=== PATIENT | female | born 2000 | race Caucasian/White ===

== ENCOUNTER 2020-10-13 23:18 | Emergency (ER) | payer OTHER, MEDICAID ==
[2020-10-13] MEDS ORDERED: Sodium Chloride 0.9% 1,000 ML IV SCH (23:45)
--- NOTE | 2020-10-13 23:49 | EDM.PDOC ---
ED HPI GENERAL MEDICAL PROBLEM - General Chief Complaint: BAND CUTTER Problem Stated Complaint: 14 WKS PG VAGINAL BLEEDING Time Seen by Provider: 10/13/20 23:48 Source of Information: Reports: Patient History Limitations: Reports: No Limitations - History of Present Illness INITIAL COMMENTS - FREE TEXT/NARRATIVE: 20-year-old female who is 2 para 0 presents to the ED at approximately 14 weeks gestation with acute onset of bright red blood per vagina. Associated mild lower abdominal cramping pain which she equates to menstrual cramping. had been uncomplicated up until today. Patient states that after sexual intercourse tonight she developed bright red bleeding per vagina approximately 2200 hrs. Became aware of blood running down the inside of her left leg and blood dripping into the toilet when she went to the bathroom with bright red blood with wiping. Patient is followed by Dr. Sergio Lazar BAND CUTTER and actually seen him in clinic yesterday with no reported abnormalities. An ultrasound was not done however. Ultrasound done previously established her due date to be April 09, 2021. Patient had a previous with twin gestation that ended at 12 weeks with spontaneous miscarriage. This occurred in July of this year. Patient reports that she is blood type O-. She does not recall ever receiving any RhoGam after the last miscarriage. She reports no previous abdominal surgery. Onset: Today, Sudden Onset Date: 10/13/20 Onset Time: 21:30 Duration: Minutes:, Improving Location: Reports: Other (Bright red bleeding per vagina.) Quality: Reports: Other Severity: Mild (Intermittent lower abdominal cramping pain) Improves with: Reports: None Worsens with: Reports: None Context: Denies: Activity, Exercise, Lifting, Sick Contact, Trauma, Other Associated Symptoms: Denies: Confusion, Chest Pain, Cough, cough w sputum, Diaphoresis, Fever/Chills, Headaches, Loss of Appetite, Malaise, Nausea/Vomiting, Rash, Seizure, Shortness of Breath, Syncope, Weakness Treatments PORK CUTLET [employer]KER: Reports: Other (see below) (Only vitamin.) Lower Abdomen Pain Score (Numeric/FACES): 3 - Related Data Allergies Allergy/AdvReac Type Severity Reaction Status Date / Time No Known Allergies Allergy Verified 10/13/20 23:48 Past Medical History : 2 Para: 0 (Spontaneous miscarriage of twin gestation at 12 weeks in July 2020.) LMP (Approximate): > 3 Months Social & Family History - Living Situation & Occupation Living situation: Reports: Single Occupation: Employed (Self-employed) ED ROS GENERAL - Review of Systems Review Of Systems: See Below Constitutional: Reports: Fatigue. Denies: Fever, Chills, Malaise, Weakness HEENT: Reports: No Symptoms Respiratory: Reports: No Symptoms Cardiovascular: Reports: No Symptoms Endocrine: Reports: Fatigue GI/Abdominal: Reports: Abdominal Pain (Mild diffuse lower suprapubic abdominal cramping pain associate with bright red bleeding per vagina tonight.), Constipation (Mild problems with constipation). Denies: Nausea, Vomiting : Reports: Other (Bright red bleeding per vagina see history of present illness.) Musculoskeletal: Reports: No Symptoms Skin: Reports: No Symptoms Neurological: Reports: No Symptoms Psychiatric: Reports: No Symptoms Hematologic/Lymphatic: Reports: No Symptoms Immunologic: Reports: No Symptoms ED EXAM - Physical Exam Exam: See Below Exam Limited By: No Limitations General Appearance: Alert, WD/WN, No Apparent Distress, Other (Temperature is 37.1. Heart rate 71 and sinus. Respiratory is 20 with O2 sats of 100% room air. BP 119/76.) Eye Exam: Bilateral Eye: Normal Inspection (No scleral icterus. No blepharal pallor.), PERRL Throat/Mouth: Normal Inspection, Normal Lips, Normal Teeth, Normal Oropharynx Head: Atraumatic, Normocephalic Neck: Normal Inspection, Supple, Non-Tender, Full Range of Motion. No: Lymphadenopathy (L), Lymphadenopathy (R) Respiratory/Chest: No Respiratory Distress, Lungs Clear, Normal Breath Sounds, No Accessory Muscle Use Cardiovascular: Normal Peripheral Pulses, Regular Rate, Rhythm, No Edema, No Gallop, No Murmur GI/Abdominal Exam: Normal Bowel Sounds, Soft, Non-Tender, No Organomegaly, Pelvis Stable, Other (Gravid uterus palpable approximately 2 cm above the pubic symphysis.) (Female) Exam: Normal External Exam, Other (Uterus is acutely anteverted. Cervix is closed but is far posterior. Uterus appears to be about 14 weeks gestation. Associated mild uterine tenderness. There was no significant blood on gloved fingers.). No: Adnexal Tenderness, Cervix Motion Tenderness Heart Tones: Present (Ultrasound reveals heart rate to be 157/min.) Back Exam: Normal Inspection, Full Range of Motion. No: CVA Tenderness (L), CVA Tenderness (R) Extremities: Normal Inspection, Normal Range of Motion, Non-Tender Neurological: Alert, Oriented, CN II-XII Intact, Normal Cognition Psychiatric: Anxious (Mildly anxious.) Skin Exam: Warm, Dry, Intact, Normal Color, No Rash Course - Vital Signs Last Recorded V/S: Last Vital Signs Temp 37.1 C 10/13/20 23:44 Pulse 71 10/13/20 23:44 Resp 20 10/13/20 23:44 BP 119/76 10/13/20 23:44 Pulse Ox 100 10/13/20 23:44 - Orders/Labs/Meds Orders: Active Orders 24 hr Category Date Time Status OB Ltd 1 or More Fetus [US] Stat Exams 10/14/20 00:00 Taken RHIG WORKUP, [BBK] Stat Lab 10/14/20 00:05 Received Sodium Chloride 0.9% [Normal Saline] 1,000 ml Med 10/13/20 23:45 Active IV ASDIRECTED Medication Orders Sodium Chloride (Normal Saline) 1,000 mls @ 150 mls/hr IV ASDIRECTED SAWYER Last Admin: 10/14/20 00:25 Dose: 150 mls/hr Documented by: MARK Labs: Laboratory Tests 10/14/20 10/14/20 10/14/20 Range/Units 00:05 00:05 00:05 WBC 9.30 (3.98-10.04) K/mm3 RBC 4.00 (3.98-5.22) M/mm3 Hgb 11.4 (11.2-15.7) gm/dl Hct 33.6 L (34.1-44.9) % MCV 84.0 (79.4-94.8) fl MCH 28.5 (25.6-32.2) pg MCHC 33.9 (32.2-35.5) g/dl RDW Std Deviation 36.6 (36.4-46.3) fL Plt Count 249 (182-369) K/mm3 MPV 9.5 (9.4-12.3) fl Neut % (Auto) 63.0 (34.0-71.1) % Lymph % (Auto) 27.2 (19.3-51.7) % [place] % (Auto) 7.8 (4.7-12.5) % Eos % (Auto) 1.3 (0.7-5.8) Baso % (Auto) 0.4 (0.1-1.2) % Neut # (Auto) 5.85 (1.56-6.13) K/mm3 Lymph # (Auto) 2.53 (1.18-3.74) K/mm3 [place] # (Auto) 0.73 H (0.24-0.36) K/mm3 Eos # (Auto) 0.12 (0.04-0.36) K/mm3 Baso # (Auto) 0.04 (0.01-0.08) K/mm3 Sodium 139 (136-145) mEq/L Potassium 3.6 (3.5-5.1) mEq/L Chloride 104 (98-107) mEq/L Carbon Dioxide 24 (21-32) mEq/L Anion Gap 14.6 (5-15) BUN 9 (7-18) mg/dL Creatinine 0.7 (0.55-1.02) mg/dL Est Cr Clr Drug Dosing 114.40 mL/min Estimated GFR (MDRD) > 60 (>60) mL/min BUN/Creatinine Ratio 12.9 L (14-18) Glucose 79 (70-99) mg/dL Calcium 8.6 (8.5-10.1) mg/dL Total Bilirubin 0.7 (0.2-1.0) mg/dL AST 14 L (15-37) U/L ALT 20 (14-59) U/L Alkaline Phosphatase 46 (46-116) U/L Total Protein 6.6 (6.4-8.2) g/dl Albumin 3.6 (3.4-5.0) g/dl Globulin 3.0 gm/dL Albumin/Globulin Ratio 1.2 (1-2) Urine Color (Yellow) Urine Appearance (Clear) Urine pH (5.0-8.0) Ur Specific [place] (1.005-1.030) Urine Protein (Negative) Urine Glucose (UA) (Negative) Urine Ketones (Negative) Urine Occult Blood (Negative) Urine Nitrite (Negative) Urine Bilirubin (Negative) Urine Urobilinogen (0.2-1.0) Ur Leukocyte Esterase (Negative) Urine RBC (0-5) /hpf Urine WBC (0-5) /hpf Ur Squamous Epith Cells (0-5) /hpf Amorphous Sediment (NOT SEEN) /hpf Urine Bacteria (FEW) /hpf Urine Mucus (FEW) /hpf Blood Type O NEGATIVE Gel Antibody Screen Negative Screen 0 ros/5 flds - neg RhIG Candidate? Yes Rhogam Indicated Cancelled 10/14/20 Range/Units 00:26 WBC (3.98-10.04) K/mm3 RBC (3.98-5.22) M/mm3 Hgb (11.2-15.7) gm/dl Hct (34.1-44.9) % MCV (79.4-94.8) fl MCH (25.6-32.2) pg MCHC (32.2-35.5) g/dl RDW Std Deviation (36.4-46.3) fL Plt Count (182-369) K/mm3 MPV (9.4-12.3) fl Neut % (Auto) (34.0-71.1) % Lymph % (Auto) (19.3-51.7) % [place] % (Auto) (4.7-12.5) % Eos % (Auto) (0.7-5.8) Baso % (Auto) (0.1-1.2) % Neut # (Auto) (1.56-6.13) K/mm3 Lymph # (Auto) (1.18-3.74) K/mm3 [place] # (Auto) (0.24-0.36) K/mm3 Eos # (Auto) (0.04-0.36) K/mm3 Baso # (Auto) (0.01-0.08) K/mm3 Sodium (136-145) mEq/L Potassium (3.5-5.1) mEq/L Chloride (98-107) mEq/L Carbon Dioxide (21-32) mEq/L Anion Gap (5-15) BUN (7-18) mg/dL Creatinine (0.55-1.02) mg/dL Est Cr Clr Drug Dosing mL/min Estimated GFR (MDRD) (>60) mL/min BUN/Creatinine Ratio (14-18) Glucose (70-99) mg/dL Calcium (8.5-10.1) mg/dL Total Bilirubin (0.2-1.0) mg/dL AST (15-37) U/L ALT (14-59) U/L Alkaline Phosphatase (46-116) U/L Total Protein (6.4-8.2) g/dl Albumin (3.4-5.0) g/dl Globulin gm/dL Albumin/Globulin Ratio (1-2) Urine Color Yellow (Yellow) Urine Appearance Clear (Clear) Urine pH 7.0 (5.0-8.0) Ur Specific [place] 1.020 (1.005-1.030) Urine Protein Negative (Negative) Urine Glucose (UA) Negative (Negative) Urine Ketones Negative (Negative) Urine Occult Blood 1+ H (Negative) Urine Nitrite Negative (Negative) Urine Bilirubin Negative (Negative) Urine Urobilinogen 0.2 (0.2-1.0) Ur Leukocyte Esterase Negative (Negative) Urine RBC 0-5 (0-5) /hpf Urine WBC Not seen (0-5) /hpf Ur Squamous Epith Cells Not seen (0-5) /hpf Amorphous Sediment Few H (NOT SEEN) /hpf Urine Bacteria Rare (FEW) /hpf Urine Mucus Rare (FEW) /hpf Blood Type Gel Antibody Screen Screen RhIG Candidate? Rhogam Indicated Meds: Medications Generic Name Dose Route Start Last Admin Trade Name Freq PRN Reason Stop Dose Admin Sodium Chloride 1,000 mls @ 150 mls/hr 10/13/20 23:45 10/14/20 00:25 Normal Saline IV 150 mls/hr ASDIRECTED SAWYER Administration - Radiology Interpretation Free Text/Narrative:: 20-year-old female who is 2 para 0 presents to the ED with acute bleeding per vagina after sexual intercourse this evening. She is known to be with EDC set at April 09, 2021 by ultrasound. She was to see Dr. Sergio Lazar BAND CUTTER yesterday in clinic and no problems were identified. Ultrasound was not done yesterday. Patient reports after intercourse about 2200 hrs. she developed acute bleeding per vagina down the inner aspect of her left thigh. Appreciated bright red blood dripping into the toilet when she went to void. Associated very mild lower abdominal cramping pain Brandon with menstrual cramping. Of note patient had a miscarriage at 12 weeks gestation in July of this year and loss of a twin gestation occurred. Of note the patient is blood type O- according to her blood donor card. She does not recall receiving RhoGam in July after miscarriage. Plan routine labs to be done including a type and screen. She will require RhoGam IM if confirmation of O- blood type identified. Transabdominal ultrasound to be done. Doppler ultrasound reveals heart tones at 157/min. - Re-Assessments/Exams Free Text/Narrative Re-Assessment/Exam: 10/14/20 01:46 White count is normal at 9.30. Differential shows 63% neutrophils and 27% lymphocytes. Hemoglobin is 11.4 with hematocrit of 33.6 both of which are slightly low. Platelet count is 249,000. Sodium is 139 with a potassium of 3.6. Chloride is 104 with a bicarb of 24. Anion gap is 14.6. BUN is 9 with a creatinine of 0.7 and a GFR greater than 60. Glucose is slightly low at 79. Calcium is 8.6 . Liver function is normal. Total protein is 6.6 with an albumin fraction of 3.6. Urinalysis shows 1+ occult blood but no signs of infection. Blood type is O neg. Therefore she will need a dose of RhoGam. 10/14/20 02:25: Transabdominal ultrasound completed. Fetus is in variable position. heart rate was reportedly 148 bpm. The placenta is on the posterior fundus of the uterus. However there is a 1.7 x 1.1 x 2 cm hypoechoic focus at the superior edge of the placenta concerning for a marginal placental abruption. There is no large retroplacental hematoma. Cervix is closed and measures 3.8 cm. Patient and boyfriend so advised of the findings of the ultrasound placing her at high risk for miscarriage. At present she is having very little pain or discomfort. There is no further active bleeding at this time. Decision made to allow her to go home. She is going to be off work for the next week. She is to take life very easy with no lifting, pushing, pulling. No sexual intercourse for the next week. She is to return to medical care either to Dr. Sergio Lazar or after hours to the ED if she develops increased bright red bleeding per vagina or associated increased severe lower abdominal cramping pain. She was advised that she should make an appointment to see Dr. Lazar within the next 10 days. Patient did receive RhoGam 1500mcg IM. Departure - Departure Time of Disposition: 02:57 Disposition: Home, Self-Care 01 Condition: Fair Clinical Impression: Hemorrhage affecting in second trimester Placental abruption Qualifiers: Trimester: second trimester Qualified Code(s): O45.92 - Premature separation of placenta, unspecified, second trimester - Discharge Information *PRESCRIPTION DRUG MONITORING PROGRAM REVIEWED*: Not Applicable *COPY OF PRESCRIPTION DRUG MONITORING REPORT IN PATIENT KAREN: Not Applicable Instructions: Vaginal Bleeding During , Second Trimester, [id number], Placental Abruption Referrals: Sergio Lazar MD [Primary Care Provider] - Forms: ED Department Discharge, ED Return to Work/School Form Additional Instructions: Evaluation in the emergency room tonight in regards to development of sudden onset of bleeding per vagina and secondary trimester of . By history you are 14 weeks gestation. Ultrasound in the past identified due date to be April 09, 2021. Associated mild lower abdominal cramping pain combined with menstrual cramping. Investigations in the emergency room revealed very mild anemia in . Ultrasound done transabdominally reveals that there is a partial tear of the superior portion of the placenta measuring 1.7 x 1.1 x 2 cm along the superior edge. This suggests a very minimal or marginal abruption of the placenta as we discussed. There was no large collection of blood behind the placenta. heart rate on ultrasound was 148/min. Cervix was identified to be closed on ultrasound as well as pelvic examination. Treatment at this time is therefore near complete bed rest or resting with no significant lifting, pushing, pulling or walking for the next week. No sexual intercourse for the next week or until no further bleeding for 5 days. Return to medical care either discussed with Dr. Lazar your BAND CUTTER or return to the ED if you develop increasing lower abdominal pain or associated increased bleeding per vagina. The goal is to allow your placenta to scarred back down onto the lining of the uterus and prevent loss of this . Suggest make an appointment to see Dr. Sergio Lazar within the next 10 days for follow-up ultrasound. Sepsis Event Note (ED) - Focused Exam Vital Signs: Vital Signs Temp Pulse Resp BP Pulse Ox 10/13/20 23:44 37.1 C 71 20 119/76 100 - My Orders Last 24 Hours: My Active Orders 10/13/20 23:45 Sodium Chloride 0.9% [Normal Saline] 1,000 ml IV ASDIRECTED 10/14/20 00:00 OB Ltd 1 or More Fetus [US] Stat 10/14/20 00:05 RHIG WORKUP, [BBK] Stat - Assessment/Plan Last 24 Hours: My Active Orders 10/13/20 23:45 Sodium Chloride 0.9% [Normal Saline] 1,000 ml IV ASDIRECTED 10/14/20 00:00 OB Ltd 1 or More Fetus [US] Stat 10/14/20 00:05 RHIG WORKUP, [BBK] Stat
--- NOTE | 2020-10-14 07:50 | US ---
Obstetrical ultrasound: Multiple real-time images were obtained. Comparison: No prior obstetrical imaging is available. Dates: Working SAMANTHA: 04/09/21, gestational age 14 weeks 5 days Current ultrasound: SAMANTHA 04/05/21, gestational age 15 weeks 2 days presentation: Mobile Placenta: Posterior with no findings of placenta previa Amniotic fluid: FELICIA 9.2 cm Other findings: Small hypoechoic area is seen next to the superior placenta measuring 1.7 x 1.1 x 2.0 cm. This could represent minimal change from very partial abruption. Measurements: BPD: 3.17 cm - 15 weeks 5 days Head circumference: 10.82 cm - 15 weeks 1 day Abdominal circumference: 9.24 cm - 15 weeks 3 days Femur length: 1.53 cm - 14 weeks 4 days Estimated weight: 112 g (0 lbs. 4 oz.), estimated weight at the 58th percentile for age by working SAMANTHA Heart rate: 148 bpm Cervical length: 3.8 cm Impression: 1. Single intrauterine fetus mobile in presentation. Dates as noted above. 2. Small hypoechoic area next to the placenta suspicious for minimal hemorrhage from minimal superior abruption of the placenta. 3. No other complicating abnormality is appreciated. Diagnostic code #3 I agree with preliminary report from [facility], finalized on 10/14/20, 3:40 AM CDT, code 1
== END 2020-10-14 03:29 | disposition home or self-care (01) ==
LOC: MERGE 23:18 → JD.ED 23:18
DX: O45.92 Premature separation of placenta, unspecified, second trimester (principal); O20.9 Hemorrhage in early pregnancy, unspecified; Z3A.14 14 weeks gestation of pregnancy
CPT/HCPCS: 36415; 76815; 80053; 81001; 85025; 86850; 86900; 86901; 90384; 99284; J7030; 99283; J2790

== ENCOUNTER 2021-04-09 01:11 | Inpatient (IN) | payer OTHER, MEDICAID ==
[2021-04-09] MEDS ORDERED: Ondansetron 4 MG/2 ML SDV IVPUSH PRN (01:34)
[2021-04-09] MEDS ORDERED: Lidocaine 1% 50 ML MDV INJECT ONE (01:34)
[2021-04-09] MEDS ORDERED: Nalbuphine 10 MG/1 ML Vial IVPUSH PRN (01:34)
[2021-04-09] MEDS ORDERED: Misoprostol 100 MCG Tab PO PRN (01:34)
[2021-04-09] MEDS ORDERED: Acetaminophen 325 MG Tab PO PRN (01:34)
[2021-04-09] MEDS ORDERED: Sodium Chloride 0.9% 10 ML Syringe FLUSH PRN (01:34)
[2021-04-09] MEDS ORDERED: Calcium Carbonate 500 MG Tab.Chew PO PRN (01:34)
[2021-04-09] MEDS ORDERED: Oxytocin/Lactated Ringers 10 UNIT/1,000 ML BAG IV SCH (01:45)
[2021-04-09] MEDS ORDERED: Misoprostol 25 MCG (1/4 of 100 MCG) Tab ONE (02:21)
[2021-04-09] MEDS ORDERED: Calcium Gluconate 10% 1 GM/10 ML SDV IV PRN (02:32)
[2021-04-09] MEDS ORDERED: Labetalol 100 MG/20 ML MDV IVPUSH ONE (02:35)
[2021-04-09] MEDS ORDERED: Magnesium Sulfate/Water 4 GM in Premix Bag 1 BAG IV ONE (02:36)
[2021-04-09] MEDS ORDERED: Magnesium Sulfate/Water 2 GM in Premix Bag 1 BAG IV ONE (02:36)
[2021-04-09] MEDS ORDERED: Magnesium Sulfate/Water 50 ML ONE (02:40)
[2021-04-09] MEDS: Lactated Ringers 1,000 ML IV SCH ×3 (03:00→19:14)
[2021-04-09] MEDS ORDERED: diphenhydrAMINE 50 MG/ML SDV IVPUSH PRN (03:16)
[2021-04-09] MEDS ORDERED: ePHEDrine 50 MG/ML SDV IVPUSH PRN (03:16)
[2021-04-09] MEDS ORDERED: fentaNYL 100 MCG/2 ML SDV EPIDUR PRN (03:16)
[2021-04-09] MEDS: Magnesium Sulfate/Water 40 GM/1,000 ML BAG IV SCH ×2 (03:42→23:08)
--- NOTE | 2021-04-09 07:12 | PCM.LDHP ---
L&D History of Present Illness - General Date of Service: 04/09/21 Admit Problem/Dx: Patient Status Order with Admit Dx/Problem 04/09/21 01:17 Patient Status [ADT] Routine 04/09/21 01:35 Patient Status [ADT] Routine Admission Diagnosis/Problem Admission Diagnosis/Problem Term Source of Information: Patient History Limitations: Reports: No Limitations - History of Present Illness Introduction:: Patient is a 20 y/o at 40 0/7 wks who presented around 0115 for concerns of labor. Had been having cramping throughout the day. Was not dilated, but found to have mild range BP's and one severe range BP requiring admission. - Related Data Allergies/Adverse Reactions: Allergies Allergy/AdvReac Type Severity Reaction Status Date / Time No Known Allergies Allergy Verified 04/09/21 01:54 Home Medications: Home Meds Pnv No.95/Ferrous Fum/Folic AC [ Caplet] 1 tab PO DAILY 10/14/20 [History] Past Medical History [employer] History: Reports: , Spontaneous : 3 Para: 0 LMP (Approximate): - Infectious Disease History Infectious Disease History: Reports: Novel Coronavirus Social & Family History - Family History Family Medical History: Unobtainable - Tobacco Use Tobacco Use Status *Q: Never Tobacco User - Caffeine Use Caffeine Use: Reports: Soda - Alcohol Use Alcohol Use History: No - Recreational Drug Use Recreational Drug Use: No - Living Situation & Occupation Living situation: Reports: Single Occupation: Employed (Self-employed) H&P Review of Systems - Review of Systems: Review Of Systems: See Below General: Reports: No Symptoms HEENT: Reports: Rhinitis Pulmonary: Reports: Cough (mild) Cardiovascular: Reports: No Symptoms Gastrointestinal: Reports: No Symptoms Genitourinary: Reports: No Symptoms Musculoskeletal: Reports: No Symptoms Neurological: Reports: No Symptoms L&D Exam - Exam Exam: See Below - Vital Signs Vital Signs: Last Vital Signs Temp 36.7 C 04/09/21 01:26 Pulse 60 04/09/21 01:26 Resp 16 04/09/21 01:26 BP 167/93 H 04/09/21 01:26 Pulse Ox 100 04/09/21 01:26 Weight: 83.007 kg - OB Specific Contraction Intensity: Irritability Movement: Active Heart Tones: Present Heart Rate (FHR) Variability: Moderate (6-25 bpm) Presentation: Vertex - Moran Score Moran Score Cervix Position: Midposition Moran Score Consistency: Medium Moran Score Effacement: 51-70% Moran Score Dilation: Closed Moran Score Infant's Station: -3 Moran Score Total: 4 - Exam General: Alert, Oriented, Cooperative Lungs: Normal Respiratory Effort, Crackles (bases ) Cardiovascular: Regular Rate, Regular Rhythm GI/Abdominal Exam: Soft, Non-Tender Genitourinary: Normal external exam Extremities: Normal Inspection Skin: Warm, Dry, Intact Neurological: Reflexes Equal Bilateral DTR: 1+: Patella (R), 2+: Bicep (R) - Patient Data Lab Results Last 24 hrs: Laboratory Results - last 24 hr 04/09/21 04/09/21 04/09/21 Range/Units 01:45 01:45 01:45 WBC 5.70 (3.98-10.04) K/mm3 RBC 4.26 (3.98-5.22) M/mm3 Hgb 12.7 (11.2-15.7) gm/dl Hct 37.6 (34.1-44.9) % MCV 88.3 (79.4-94.8) fl MCH 29.8 (25.6-32.2) pg MCHC 33.8 (32.2-35.5) g/dl RDW Std Deviation 38.8 (36.4-46.3) fL Plt Count 231 (182-369) K/mm3 MPV 10.1 (9.4-12.3) fl Neut % (Auto) 69.6 (34.0-71.1) % Lymph % (Auto) 19.5 (19.3-51.7) % Adams % (Auto) 8.8 (4.7-12.5) % Eos % (Auto) 0.5 L (0.7-5.8) Baso % (Auto) 0.5 (0.1-1.2) % Neut # (Auto) 3.97 (1.56-6.13) K/mm3 Lymph # (Auto) 1.11 L (1.18-3.74) K/mm3 Adams # (Auto) 0.50 H (0.24-0.36) K/mm3 Eos # (Auto) 0.03 L (0.04-0.36) K/mm3 Baso # (Auto) 0.03 (0.01-0.08) K/mm3 BUN 9 (7-18) mg/dL Creatinine 0.8 (0.55-1.02) mg/dL Est Cr Clr Drug Dosing 100.10 mL/min Estimated GFR (MDRD) > 60 (>60) mL/min Uric Acid 6.6 H (2.6-6.0) mg/dL AST 30 (15-37) U/L ALT 24 (14-59) U/L Lactate Dehydrogenase 198 (81-234) U/L Ur Random Creatinine (30.0-125.0) mg/dL U Random Total Protein (0.0-11.8) mg/dL Protein/Creatinin Ratio (0-149) mg/g SARS-CoV-2 RNA (LLOYD) (NEGATIVE) Blood Type O NEGATIVE Gel Antibody Screen Positive 04/09/21 04/09/21 Range/Units 01:55 02:10 WBC (3.98-10.04) K/mm3 RBC (3.98-5.22) M/mm3 Hgb (11.2-15.7) gm/dl Hct (34.1-44.9) % MCV (79.4-94.8) fl MCH (25.6-32.2) pg MCHC (32.2-35.5) g/dl RDW Std Deviation (36.4-46.3) fL Plt Count (182-369) K/mm3 MPV (9.4-12.3) fl Neut % (Auto) (34.0-71.1) % Lymph % (Auto) (19.3-51.7) % Adams % (Auto) (4.7-12.5) % Eos % (Auto) (0.7-5.8) Baso % (Auto) (0.1-1.2) % Neut # (Auto) (1.56-6.13) K/mm3 Lymph # (Auto) (1.18-3.74) K/mm3 Adams # (Auto) (0.24-0.36) K/mm3 Eos # (Auto) (0.04-0.36) K/mm3 Baso # (Auto) (0.01-0.08) K/mm3 BUN (7-18) mg/dL Creatinine (0.55-1.02) mg/dL Est Cr Clr Drug Dosing mL/min Estimated GFR (MDRD) (>60) mL/min Uric Acid (2.6-6.0) mg/dL AST (15-37) U/L ALT (14-59) U/L Lactate Dehydrogenase (81-234) U/L Ur Random Creatinine 142.4 H (30.0-125.0) mg/dL U Random Total Protein 435.2 H (0.0-11.8) mg/dL Protein/Creatinin Ratio 3056.2 H (0-149) mg/g SARS-CoV-2 RNA (LLOYD) Positive H (NEGATIVE) Blood Type Gel Antibody Screen Result Diagrams: 04/09/21 01:45 04/09/21 01:45 - Problem List (1) 40 weeks gestation of SNOMED Code(s): 84384072 ICD Code: Z3A.40 - 40 WEEKS GESTATION OF Status: Acute Current Visit: Yes (2) Severe preeclampsia SNOMED Code(s): 11847124 ICD Code: O14.10 - SEVERE PRE-ECLAMPSIA, UNSPECIFIED TRIMESTER Status: Acute Current Visit: Yes Qualifiers: Trimester: third trimester Qualified Code(s): O14.13 - Severe pre- eclampsia, third trimester (3) Coronavirus infection SNOMED Code(s): 611596968 ICD Code: B34.2 - CORONAVIRUS INFECTION, UNSPECIFIED Status: Acute Current Visit: Yes Problem List Initiated/Reviewed/Updated: Yes Orders Last 24hrs: Active Orders 24 hr Category Date Time Status Patient Status [ADT] Routine ADT 04/09/21 01:35 Active Activity as Tolerated [RC] PFP Care 04/09/21 01:35 Active Bedrest [RC] ASDIRECTED Care 04/09/21 02:33 Active Communication Order [RC] ASDIRECTED Care 04/09/21 01:35 Active Communication Order [RC] ASDIRECTED Care 04/09/21 01:35 Active Communication Order [RC] ASDIRECTED Care 04/09/21 01:35 Active Communication Order [RC] ASDIRECTED Care 04/09/21 01:35 Active Communication Order [RC] ASDIRECTED Care 04/09/21 02:33 Active Communication Order [RC] ASDIRECTED Care 04/09/21 03:16 Active Cooling Warming Measures [RC] ASDIRECTED Care 04/09/21 03:16 Active Equipment to Bedside [RC] PRN Care 04/09/21 02:33 Active Heart Tones [RC] ASDIRECTED Care 04/09/21 01:35 Active Monitoring [RC] CONTINUOUS Care 04/09/21 02:33 Active Monitoring [RC] INTERMITTENT Care 04/09/21 01:35 Active Notify Provider [RC] ASDIRECTED Care 04/09/21 01:35 Active Notify Provider [RC] ASDIRECTED Care 04/09/21 02:33 Active Notify Provider [RC] ASDIRECTED Care 04/09/21 03:16 Active Notify Provider [RC] ASDIRECTED Care 04/09/21 03:16 Active Notify Provider [RC] PFP Care 04/09/21 01:35 Active Notify Provider [RC] PRN Care 04/09/21 01:35 Active Oxygen Therapy [RC] ASDIRECTED Care 04/09/21 03:16 Active Oxygen Therapy [RC] PRN Care 04/09/21 02:33 Active Peripheral IV Care [RC] . DIRECTED Care 04/09/21 01:35 Active Pulse Oximetry [RC] ASDIRECTED Care 04/09/21 03:16 Active Pump Management, Intrathecal [RC] ASDIRECTED Care 04/09/21 01:35 Active Urinary Catheter Assessment [RC] ASDIRECTED Care 04/09/21 01:34 Active Vaginal Exam [RC] ASDIRECTED Care 04/09/21 01:35 Active Vital Signs [RC] PER UNIT ROUTINE Care 04/09/21 01:17 Active Vital Signs [RC] Q1H Care 04/09/21 03:16 Active Regular Diet [DIET] Diet 04/09/21 Breakfast Active ANTIBODY IDENTIFICATION [BBK] Stat Lab 04/09/21 01:45 Results RAPID PLASMA REAGIN,RPR [CHEM] Routine Lab 04/09/21 01:45 Received TYPE AND SCREEN [BBK] Stat Lab 04/09/21 01:45 Results Acetaminophen [TylenoL] Med 04/09/21 01:34 Active 650 mg PO Q4H PRN Bupivacaine/fentaNYL/NS [fentaNYL/Bupivacaine/NS 2 MCG- Med 04/09/21 03:16 Active 0.125% 100 ML] 100 ml EPIDUR ASDIRECTED PRN Calcium Carbonate [Tums] Med 04/09/21 01:34 Active 1,000 mg PO Q2H PRN Calcium Gluconate Med 04/09/21 02:32 Active 1 gm IV ASDIRECTED PRN Lactated Ringers [Ringers, Lactated] 1,000 ml Med 04/09/21 01:45 Active IV ASDIRECTED Magnesium Sulfate/Water [Magnesium Sulfate in Water 40 Med 04/09/21 02:45 Active GM/1000 ML] 40 gm in 1,000 ml IV ASDIRECTED Nalbuphine [Nubain] Med 04/09/21 01:34 Active 10 mg IVPUSH Q2H PRN Ondansetron [Zofran] Med 04/09/21 01:34 Active 4 mg IVPUSH Q4H PRN Oxytocin/Lactated Ringers [Pitocin in LR 10 Units/1,000 Med 04/09/21 01:45 Active ML] 10 unit in 1,000 ml IV TITRATE Sodium Chloride 0.9% [Saline Flush] Med 04/09/21 01:34 Active 10 ml FLUSH ASDIRECTED PRN diphenhydrAMINE [Benadryl] Med 04/09/21 03:16 Active 25 mg IVPUSH Q6H PRN ePHEDrine [ePHEDrine sulfate] Med 04/09/21 03:16 Active 5 mg IVPUSH ASDIRECTED PRN fentaNYL [Sublimaze] Med 04/09/21 03:16 Active 100 mcg EPIDUR Q3H PRN miSOPROStoL [Cytotec] Med 04/09/21 05:58 Active 25 mcg PO Q4HR PRN Blood Pressure [OM.PC] ASDIRECTED Ot 04/09/21 02:45 Ordered Deep Tendon Reflexes [WOMSER] ASDIRECTED Ot 04/09/21 02:45 Ordered Electronic Heart Tones Ext w TOCO [WOMSER] Oth 04/09/21 01:35 Ordered Routine Electronic Heart Tones Internal [WOMSER] Per Unit Oth 04/09/21 01:35 Ordered Routine Medication Administration Instruction [OM.PC] Per Unit Oth 04/09/21 02:33 Ordered Routine PIH Panel [OM.PC] Stat Oth 04/09/21 01:34 Ordered Peripheral IV Insertion Adult [OM.PC] Routine Oth 04/09/21 01:35 Ordered Resuscitation Status Routine Resus Stat 04/09/21 01:17 Ordered Medication Orders Acetaminophen (Acetaminophen 325 Mg Tab) 650 mg PO Q4H PRN PRN Reason: Pain (Mild 1-3) and fever Calcium Carbonate/Glycine (Calcium Carbonate 500 Mg Tab.Chew) 1,000 mg PO Q2H PRN PRN Reason: Indigestion Calcium Gluconate (Calcium Gluconate 10% 1 Gm/10 Ml Sdv) 1 gm IV ASDIRECTED PRN PRN Reason: respiratory distress Diphenhydramine HCl (Diphenhydramine 50 Mg/Ml Sdv) 25 mg IVPUSH Q6H PRN PRN Reason: pruritis Ephedrine Sulfate (Ephedrine 50 Mg/Ml Sdv) 5 mg IVPUSH ASDIRECTED PRN PRN Reason: Hypotension Fentanyl (Fentanyl 100 Mcg/2 Ml Sdv) 100 mcg EPIDUR Q3H PRN PRN Reason: Pain Fentanyl/Bupivacaine HCl (Bupivacaine/Fentanyl/Ns 100 Ml Bag) 100 ml EPIDUR ASDIRECTED PRN PRN Reason: Pain Lactated Ringer's (Ringers, Lactated) 1,000 mls @ 100 mls/hr IV ASDIRECTED [facility] Last Admin: 04/09/21 03:00 Dose: 100 mls/hr Documented by: KEON Oxytocin/Lactated Ringer's (Pitocin In Lr 10 Units/1,000 Ml) 10 unit in 1,000 mls @ 12 mls/hr IV TITRATE [facility]; Protocol Magnesium Sulfate (Magnesium Sulfate In Water 40 Gm/1000 Ml) 40 gm in 1,000 mls @ 50 mls/hr IV ASDIRECTED [facility] Last Admin: 04/09/21 03:42 Dose: 50 mls/hr Documented by: KEON Misoprostol (Misoprostol 25 Mcg (1/4 Of 100 Mcg) Tab) 25 mcg PO Q4HR PRN PRN Reason: cervical ripening Nalbuphine HCl (Nalbuphine 10 Mg/1 Ml Vial) 10 mg IVPUSH Q2H PRN PRN Reason: Pain Ondansetron HCl (Ondansetron 4 Mg/2 Ml Sdv) 4 mg IVPUSH Q4H PRN PRN Reason: Nausea/Vomiting Last Admin: 04/09/21 03:32 Dose: 4 mg Documented by: KEON Sodium Chloride (Sodium Chloride 0.9% 10 Ml Syringe) 10 ml FLUSH ASDIRECTED PRN PRN Reason: Keep Vein Open Assessment/Plan Comment:: * Labs done and WNL other than elevated urine protein to creatinine ratio * Received 20 mg of Labetalol around 0300 and since then has had mild to normal range BP's * Continue magnesium at 2 grams per hour. Total fluid to not exceed 125 ml/hr * 2nd cytotec placed at 0800. Not able to place cook balloon yet. Will attempt again at 1200. Eventual switch to pitocin when able * GBS negative no need for antibiotics * Pain management per patient preference * COVID precautions
[2021-04-09] MEDS: Misoprostol 25 MCG (1/4 of 100 MCG) Tab PO PRN ×2 (07:52→12:28)
--- NOTE | 2021-04-09 12:26 | PCM.PNLD ---
Labor Progress Note - VS & Meds Active Medications: Current Medications Acetaminophen (Acetaminophen 325 Mg Tab) 650 mg PO Q4H PRN PRN Reason: Pain (Mild 1-3) and fever Calcium Carbonate/Glycine (Calcium Carbonate 500 Mg Tab.Chew) 1,000 mg PO Q2H PRN PRN Reason: Indigestion Calcium Gluconate (Calcium Gluconate 10% 1 Gm/10 Ml Sdv) 1 gm IV ASDIRECTED PRN PRN Reason: respiratory distress Diphenhydramine HCl (Diphenhydramine 50 Mg/Ml Sdv) 25 mg IVPUSH Q6H PRN PRN Reason: pruritis Ephedrine Sulfate (Ephedrine 50 Mg/Ml Sdv) 5 mg IVPUSH ASDIRECTED PRN PRN Reason: Hypotension Fentanyl (Fentanyl 100 Mcg/2 Ml Sdv) 100 mcg EPIDUR Q3H PRN PRN Reason: Pain Fentanyl/Bupivacaine HCl (Bupivacaine/Fentanyl/Ns 100 Ml Bag) 100 ml EPIDUR ASDIRECTED PRN PRN Reason: Pain Lactated Ringer's (Ringers, Lactated) 1,000 mls @ 100 mls/hr IV ASDIRECTED [facility] Last Infusion: 04/09/21 08:18 Dose: 25 mls/hr Documented by: Oxytocin/Lactated Ringer's (Pitocin In Lr 10 Units/1,000 Ml) 10 unit in 1,000 mls @ 12 mls/hr IV TITRATE [facility]; Protocol Magnesium Sulfate (Magnesium Sulfate In Water 40 Gm/1000 Ml) 40 gm in 1,000 mls @ 50 mls/hr IV ASDIRECTED [facility] Last Admin: 04/09/21 03:42 Dose: 50 mls/hr Documented by: Misoprostol (Misoprostol 25 Mcg (1/4 Of 100 Mcg) Tab) 25 mcg PO Q4HR PRN PRN Reason: cervical ripening Last Admin: 04/09/21 07:52 Dose: 25 mcg Documented by: Nalbuphine HCl (Nalbuphine 10 Mg/1 Ml Vial) 10 mg IVPUSH Q2H PRN PRN Reason: Pain Ondansetron HCl (Ondansetron 4 Mg/2 Ml Sdv) 4 mg IVPUSH Q4H PRN PRN Reason: Nausea/Vomiting Last Admin: 04/09/21 03:32 Dose: 4 mg Documented by: Sodium Chloride (Sodium Chloride 0.9% 10 Ml Syringe) 10 ml FLUSH ASDIRECTED PRN PRN Reason: Keep Vein Open Discontinued Medications Magnesium Sulfate 2 gm/ Premix 50 mls @ 300 mls/hr IV ONETIME ONE Stop: 04/09/21 02:45 Last Admin: 04/09/21 03:07 Dose: 300 mls/hr Documented by: Magnesium Sulfate 4 gm/ Premix 50 mls @ 200 mls/hr IV ONETIME ONE Stop: 04/09/21 02:50 Last Admin: 04/09/21 03:20 Dose: 200 mls/hr Documented by: Magnesium Sulfate (Magnesium Sulfate In Water 2 Gm/50 Ml) Confirm Administered Dose 50 mls @ as directed .ROUTE .STK-MED ONE Stop: 04/09/21 02:41 Last Admin: 04/09/21 05:18 Dose: Not Given Documented by: Labetalol HCl (Labetalol 100 Mg/20 Ml Mdv) 20 mg IVPUSH ONETIME ONE; Protocol Stop: 04/09/21 02:36 Last Admin: 04/09/21 02:55 Dose: 20 mg Documented by: Lidocaine HCl (Lidocaine 1% 50 Ml Mdv) 20 ml INJECT ONETIME ONE Stop: 04/09/21 01:35 Misoprostol (Misoprostol 100 Mcg Tab) 25 mcg PO Q4HR PRN PRN Reason: cervical ripening Misoprostol (Misoprostol 25 Mcg (1/4 Of 100 Mcg) Tab) Confirm Administered Dose 25 mcg .ROUTE .STK-MED ONE Stop: 04/09/21 02:22 Last Admin: 04/09/21 03:51 Dose: 25 mcg Documented by: - Uterine Contractions Uterine Monitoring Mode: External [place] Contraction Intensity: Mild to Moderate Uterine Resting Tone: Soft - Monitoring Monitor Mode: External Ultrasound Heart Rate (FHR) Baseline: 140 Heart Rate (FHR) Variability: Moderate (6-25 bpm) Accelerations: Present, 15x15 Decelerations: None Strip Review: Category I - Vaginal Exam Dilation (cm): 0.5 Effacement (Percent): 75 Station: -3 Cervical Position: Midposition - Labor Progress (Free Text) Labor Progress: Doing well overall. Exam still not with enough change to place cook balloon. 3rd cytotec placed. Continue magnesium. Patient with concerns of headache. Will given 650 mg of Tylenol and continue to monitor closely. BP's mild range.
--- NOTE | 2021-04-09 15:23 | PCM.PNLD ---
Labor Progress Note - VS & Meds Vital Signs: Last Vital Signs Temp 36.7 C 04/09/21 01:26 Pulse 60 04/09/21 01:26 Resp 16 04/09/21 01:26 BP 167/93 H 04/09/21 01:26 Pulse Ox 100 04/09/21 01:26 Active Medications: Current Medications Acetaminophen (Acetaminophen 325 Mg Tab) 650 mg PO Q4H PRN PRN Reason: Pain (Mild 1-3) and fever Last Admin: 04/09/21 12:28 Dose: 650 mg Documented by: Calcium Carbonate/Glycine (Calcium Carbonate 500 Mg Tab.Chew) 1,000 mg PO Q2H PRN PRN Reason: Indigestion Calcium Gluconate (Calcium Gluconate 10% 1 Gm/10 Ml Sdv) 1 gm IV ASDIRECTED PRN PRN Reason: respiratory distress Diphenhydramine HCl (Diphenhydramine 50 Mg/Ml Sdv) 25 mg IVPUSH Q6H PRN PRN Reason: pruritis Ephedrine Sulfate (Ephedrine 50 Mg/Ml Sdv) 5 mg IVPUSH ASDIRECTED PRN PRN Reason: Hypotension Fentanyl (Fentanyl 100 Mcg/2 Ml Sdv) 100 mcg EPIDUR Q3H PRN PRN Reason: Pain Fentanyl/Bupivacaine HCl (Bupivacaine/Fentanyl/Ns 100 Ml Bag) 100 ml EPIDUR ASDIRECTED PRN PRN Reason: Pain Lactated Ringer's (Ringers, Lactated) 1,000 mls @ 100 mls/hr IV ASDIRECTED [facility] Last Infusion: 04/09/21 08:18 Dose: 25 mls/hr Documented by: Oxytocin/Lactated Ringer's (Pitocin In Lr 10 Units/1,000 Ml) 10 unit in 1,000 mls @ 12 mls/hr IV TITRATE [facility]; Protocol Magnesium Sulfate (Magnesium Sulfate In Water 40 Gm/1000 Ml) 40 gm in 1,000 mls @ 50 mls/hr IV ASDIRECTED [facility] Last Admin: 04/09/21 03:42 Dose: 50 mls/hr Documented by: Misoprostol (Misoprostol 25 Mcg (1/4 Of 100 Mcg) Tab) 25 mcg PO Q4HR PRN PRN Reason: cervical ripening Last Admin: 04/09/21 12:28 Dose: 25 mcg Documented by: Nalbuphine HCl (Nalbuphine 10 Mg/1 Ml Vial) 10 mg IVPUSH Q2H PRN PRN Reason: Pain Last Admin: 04/09/21 14:27 Dose: 10 mg Documented by: Ondansetron HCl (Ondansetron 4 Mg/2 Ml Sdv) 4 mg IVPUSH Q4H PRN PRN Reason: Nausea/Vomiting Last Admin: 04/09/21 03:32 Dose: 4 mg Documented by: Sodium Chloride (Sodium Chloride 0.9% 10 Ml Syringe) 10 ml FLUSH ASDIRECTED PRN PRN Reason: Keep Vein Open Discontinued Medications Magnesium Sulfate 2 gm/ Premix 50 mls @ 300 mls/hr IV ONETIME ONE Stop: 04/09/21 02:45 Last Admin: 04/09/21 03:07 Dose: 300 mls/hr Documented by: Magnesium Sulfate 4 gm/ Premix 50 mls @ 200 mls/hr IV ONETIME ONE Stop: 04/09/21 02:50 Last Admin: 04/09/21 03:20 Dose: 200 mls/hr Documented by: Magnesium Sulfate (Magnesium Sulfate In Water 2 Gm/50 Ml) Confirm Administered Dose 50 mls @ as directed .ROUTE .STK-MED ONE Stop: 04/09/21 02:41 Last Admin: 04/09/21 05:18 Dose: Not Given Documented by: Labetalol HCl (Labetalol 100 Mg/20 Ml Mdv) 20 mg IVPUSH ONETIME ONE; Protocol Stop: 04/09/21 02:36 Last Admin: 04/09/21 02:55 Dose: 20 mg Documented by: Lidocaine HCl (Lidocaine 1% 50 Ml Mdv) 20 ml INJECT ONETIME ONE Stop: 04/09/21 01:35 Misoprostol (Misoprostol 100 Mcg Tab) 25 mcg PO Q4HR PRN PRN Reason: cervical ripening Misoprostol (Misoprostol 25 Mcg (1/4 Of 100 Mcg) Tab) Confirm Administered Dose 25 mcg .ROUTE .STK-MED ONE Stop: 04/09/21 02:22 Last Admin: 04/09/21 03:51 Dose: 25 mcg Documented by: - Uterine Contractions Uterine Monitoring Mode: External [place] Contraction Intensity: Mild to Moderate Uterine Resting Tone: Soft - Monitoring Monitor Mode: External Ultrasound Heart Rate (FHR) Baseline: 120 Heart Rate (FHR) Variability: Moderate (6-25 bpm) Accelerations: Present, 15x15 Decelerations: None Strip Review: Category I - Vaginal Exam Dilation (cm): 1 Effacement (Percent): 90 Station: -1 Cervical Position: Midposition - Labor Progress (Free Text) Labor Progress: Doing well. Getting more uncomfortable. Able to place cook balloon. Will transition to pitocin after 1600. Patient interested in Epidural. BP's still mild range although some upper limit. Continue magnesium.
[2021-04-09] MEDS: Bupivacaine/fentaNYL/NS 100 ML Bag EPIDUR PRN ×2 (16:09→22:52)
--- NOTE | 2021-04-09 16:23 | PCM.PREANE ---
Preanesthetic Assessment - Procedure Proposed Procedure: epidural - Anesthesia/Transfusion/Family Hx Anesthesia History: No Prior Anesthesia Family History of Anesthesia Reaction: No Transfusion History: No Prior Transfusion(s) - Review of Systems General: Weakness, Fatigue, Malaise Pulmonary: No Symptoms Cardiovascular: Dyspnea on Exertion Gastrointestinal: Abdominal Pain (labor) Neurological: No Symptoms Other: Reports: None - Physical Assessment Vital Signs: Last Vital Signs Temp 36.7 C 04/09/21 01:26 Pulse 60 04/09/21 01:26 Resp 16 04/09/21 01:26 BP 167/93 H 04/09/21 01:26 Pulse Ox 100 04/09/21 01:26 Height: 1.65 m Weight: 83.007 kg ASA Class: 2 Mental Status: Alert & Oriented x3 Airway Class: Mallampati = 1 Dentition: Reports: Normal Dentition Thyro-Mental Finger Breadths: 3 Mouth Opening Finger Breadths: 3 ROM/Head Extension: Full Lungs: Clear to Auscultation (with cough), Normal Respiratory Effort, Wheezing (basees) Cardiovascular: Regular Rate, Regular Rhythm - Lab Values: Laboratory Last Values WBC 5.70 K/mm3 (3.98-10.04) 04/09/21 01:45 RBC 4.26 M/mm3 (3.98-5.22) 04/09/21 01:45 Hgb 12.7 gm/dl (11.2-15.7) 04/09/21 01:45 Hct 37.6 % (34.1-44.9) 04/09/21 01:45 MCV 88.3 fl (79.4-94.8) 04/09/21 01:45 MCH 29.8 pg (25.6-32.2) 04/09/21 01:45 MCHC 33.8 g/dl (32.2-35.5) 04/09/21 01:45 RDW Std Deviation 38.8 fL (36.4-46.3) 04/09/21 01:45 Plt Count 231 K/mm3 (182-369) 04/09/21 01:45 MPV 10.1 fl (9.4-12.3) 04/09/21 01:45 Neut % (Auto) 69.6 % (34.0-71.1) 04/09/21 01:45 Lymph % (Auto) 19.5 % (19.3-51.7) 04/09/21 01:45 [place] % (Auto) 8.8 % (4.7-12.5) 04/09/21 01:45 Eos % (Auto) 0.5 (0.7-5.8) L 04/09/21 01:45 Baso % (Auto) 0.5 % (0.1-1.2) 04/09/21 01:45 Neut # (Auto) 3.97 K/mm3 (1.56-6.13) 04/09/21 01:45 Lymph # (Auto) 1.11 K/mm3 (1.18-3.74) L 04/09/21 01:45 [place] # (Auto) 0.50 K/mm3 (0.24-0.36) H 04/09/21 01:45 Eos # (Auto) 0.03 K/mm3 (0.04-0.36) L 04/09/21 01:45 Baso # (Auto) 0.03 K/mm3 (0.01-0.08) 04/09/21 01:45 BUN 9 mg/dL (7-18) 04/09/21 01:45 Creatinine 0.8 mg/dL (0.55-1.02) 04/09/21 01:45 Est Cr Clr Drug Dosing 100.10 mL/min 04/09/21 01:45 Estimated GFR (MDRD) > 60 mL/min (>60) 04/09/21 01:45 Uric Acid 6.6 mg/dL (2.6-6.0) H 04/09/21 01:45 AST 30 U/L (15-37) 04/09/21 01:45 ALT 24 U/L (14-59) 04/09/21 01:45 Lactate Dehydrogenase 198 U/L (81-234) 04/09/21 01:45 Ur Random Creatinine 142.4 mg/dL (30.0-125.0) H 04/09/21 02:10 U Random Total Protein 435.2 mg/dL (0.0-11.8) H 04/09/21 02:10 Protein/Creatinin Ratio 3056.2 mg/g (0-149) H 04/09/21 02:10 SARS-CoV-2 RNA (LLOYD) Positive (NEGATIVE) H 04/09/21 01:55 Blood Type O NEGATIVE 04/09/21 01:45 Gel Antibody Screen Positive 04/09/21 01:45 - Allergies Allergies/Adverse Reactions: Allergies Allergy/AdvReac Type Severity Reaction Status Date / Time No Known Allergies Allergy Verified 04/09/21 01:54 - Anesthesia Plan Pre-Op Medication Ordered: None - Acknowledgements Anesthesia Type Planned: Epidural Pt an Appropriate Candidate for the Planned Anesthesia: Yes Alternatives and Risks of Anesthesia Discussed w Pt/Guardian: Yes Pt/Guardian Understands and Agrees with Anesthesia Plan: Yes PreAnesthesia Questionnaire Respiratory History: Reports: Other (See Below) Other Respiratory History: at first pt denies but then after covid screen comes back positive the pt states she has had a cough and runny nose for 3 days Gastrointestinal History: Reports: GERD BENDING ROLL HAND History: Reports: , Spontaneous - Infectious Disease History Infectious Disease History: Reports: Novel Coronavirus - SUBSTANCE USE Tobacco Use Status *Q: Never Tobacco User Tobacco Use Within Last Twelve Months: No Recreational Drug Use History: No - HOME MEDS Home Medications: Home Meds Pnv No.95/Ferrous Fum/Folic AC [ [place]] 1 tab PO DAILY 10/14/20 [History] - CURRENT (IN HOUSE) MEDS Current Meds: Current Medications Acetaminophen (Acetaminophen 325 Mg Tab) 650 mg PO Q4H PRN PRN Reason: Pain (Mild 1-3) and fever Last Admin: 04/09/21 12:28 Dose: 650 mg Documented by: Calcium Carbonate/Glycine (Calcium Carbonate 500 Mg Tab.Chew) 1,000 mg PO Q2H PRN PRN Reason: Indigestion Calcium Gluconate (Calcium Gluconate 10% 1 Gm/10 Ml Sdv) 1 gm IV ASDIRECTED PRN PRN Reason: respiratory distress Diphenhydramine HCl (Diphenhydramine 50 Mg/Ml Sdv) 25 mg IVPUSH Q6H PRN PRN Reason: pruritis Ephedrine Sulfate (Ephedrine 50 Mg/Ml Sdv) 5 mg IVPUSH ASDIRECTED PRN PRN Reason: Hypotension Fentanyl (Fentanyl 100 Mcg/2 Ml Sdv) 100 mcg EPIDUR Q3H PRN PRN Reason: Pain Last Admin: 04/09/21 16:02 Dose: 100 mcg Documented by: Fentanyl/Bupivacaine HCl (Bupivacaine/Fentanyl/Ns 100 Ml Bag) 100 ml EPIDUR ASDIRECTED PRN PRN Reason: Pain Last Admin: 04/09/21 16:09 Dose: 100 ml Documented by: Lactated Ringer's (Ringers, Lactated) 1,000 mls @ 100 mls/hr IV ASDIRECTED SAWYER Last Admin: 04/09/21 16:03 Dose: 25 mls/hr Documented by: Oxytocin/Lactated Ringer's (Pitocin In Lr 10 Units/1,000 Ml) 10 unit in 1,000 mls @ 12 mls/hr IV TITRATE SAWYER; Protocol Magnesium Sulfate (Magnesium Sulfate In Water 40 Gm/1000 Ml) 40 gm in 1,000 mls @ 50 mls/hr IV ASDIRECTED SAWYER Last Admin: 04/09/21 03:42 Dose: 50 mls/hr Documented by: Misoprostol (Misoprostol 25 Mcg (1/4 Of 100 Mcg) Tab) 25 mcg PO Q4HR PRN PRN Reason: cervical ripening Last Admin: 04/09/21 12:28 Dose: 25 mcg Documented by: Nalbuphine HCl (Nalbuphine 10 Mg/1 Ml Vial) 10 mg IVPUSH Q2H PRN PRN Reason: Pain Last Admin: 04/09/21 14:27 Dose: 10 mg Documented by: Ondansetron HCl (Ondansetron 4 Mg/2 Ml Sdv) 4 mg IVPUSH Q4H PRN PRN Reason: Nausea/Vomiting Last Admin: 04/09/21 03:32 Dose: 4 mg Documented by: Sodium Chloride (Sodium Chloride 0.9% 10 Ml Syringe) 10 ml FLUSH ASDIRECTED PRN PRN Reason: Keep Vein Open Discontinued Medications Magnesium Sulfate 2 gm/ Premix 50 mls @ 300 mls/hr IV ONETIME ONE Stop: 04/09/21 02:45 Last Admin: 04/09/21 03:07 Dose: 300 mls/hr Documented by: Magnesium Sulfate 4 gm/ Premix 50 mls @ 200 mls/hr IV ONETIME ONE Stop: 04/09/21 02:50 Last Admin: 04/09/21 03:20 Dose: 200 mls/hr Documented by: Magnesium Sulfate (Magnesium Sulfate In Water 2 Gm/50 Ml) Confirm Administered Dose 50 mls @ as directed .ROUTE .STK-MED ONE Stop: 04/09/21 02:41 Last Admin: 04/09/21 05:18 Dose: Not Given Documented by: Labetalol HCl (Labetalol 100 Mg/20 Ml Mdv) 20 mg IVPUSH ONETIME ONE; Protocol Stop: 04/09/21 02:36 Last Admin: 04/09/21 02:55 Dose: 20 mg Documented by: Lidocaine HCl (Lidocaine 1% 50 Ml Mdv) 20 ml INJECT ONETIME ONE Stop: 04/09/21 01:35 Misoprostol (Misoprostol 100 Mcg Tab) 25 mcg PO Q4HR PRN PRN Reason: cervical ripening Misoprostol (Misoprostol 25 Mcg (1/4 Of 100 Mcg) Tab) Confirm Administered Dose 25 mcg .ROUTE .STK-MED ONE Stop: 04/09/21 02:22 Last Admin: 04/09/21 03:51 Dose: 25 mcg Documented by:
[2021-04-09] MEDS ORDERED: Bupivacaine 0.25% 10 ML SDV ONE (17:00)
[2021-04-09] MEDS: Oxytocin/Lactated Ringers 20 UNIT/1,000 ML BAG IV SCH (17:10)
--- NOTE | 2021-04-09 18:52 | PCM.PNLD ---
Labor Progress Note - VS & Meds Vital Signs: Last Vital Signs Temp 36.7 C 04/09/21 01:26 Pulse 60 04/09/21 01:26 Resp 16 04/09/21 01:26 BP 167/93 H 04/09/21 01:26 Pulse Ox 100 04/09/21 01:26 Active Medications: Current Medications Acetaminophen (Acetaminophen 325 Mg Tab) 650 mg PO Q4H PRN PRN Reason: Pain (Mild 1-3) and fever Last Admin: 04/09/21 12:28 Dose: 650 mg Documented by: Calcium Carbonate/Glycine (Calcium Carbonate 500 Mg Tab.Chew) 1,000 mg PO Q2H PRN PRN Reason: Indigestion Calcium Gluconate (Calcium Gluconate 10% 1 Gm/10 Ml Sdv) 1 gm IV ASDIRECTED PRN PRN Reason: respiratory distress Diphenhydramine HCl (Diphenhydramine 50 Mg/Ml Sdv) 25 mg IVPUSH Q6H PRN PRN Reason: pruritis Ephedrine Sulfate (Ephedrine 50 Mg/Ml Sdv) 5 mg IVPUSH ASDIRECTED PRN PRN Reason: Hypotension Last Admin: 04/09/21 18:34 Dose: 5 mg Documented by: Fentanyl (Fentanyl 100 Mcg/2 Ml Sdv) 100 mcg EPIDUR Q3H PRN PRN Reason: Pain Last Admin: 04/09/21 16:02 Dose: 100 mcg Documented by: Fentanyl/Bupivacaine HCl (Bupivacaine/Fentanyl/Ns 100 Ml Bag) 100 ml EPIDUR ASDIRECTED PRN PRN Reason: Pain Last Admin: 04/09/21 16:09 Dose: 100 ml Documented by: Lactated Ringer's (Ringers, Lactated) 1,000 mls @ 100 mls/hr IV ASDIRECTED SAWYER Last Admin: 04/09/21 16:03 Dose: 25 mls/hr Documented by: Magnesium Sulfate (Magnesium Sulfate In Water 40 Gm/1000 Ml) 40 gm in 1,000 mls @ 50 mls/hr IV ASDIRECTED SAWYER Last Admin: 04/09/21 03:42 Dose: 50 mls/hr Documented by: Oxytocin/Lactated Ringer's (Pitocin In Lr 20 Units/1,000 Ml) 20 unit in 1,000 mls @ 6 mls/hr IV TITRATE SAWYER; Protocol Last Admin: 04/09/21 17:10 Dose: 6 mls/hr Documented by: Misoprostol (Misoprostol 25 Mcg (1/4 Of 100 Mcg) Tab) 25 mcg PO Q4HR PRN PRN Reason: cervical ripening Last Admin: 04/09/21 12:28 Dose: 25 mcg Documented by: Nalbuphine HCl (Nalbuphine 10 Mg/1 Ml Vial) 10 mg IVPUSH Q2H PRN PRN Reason: Pain Last Admin: 04/09/21 14:27 Dose: 10 mg Documented by: Ondansetron HCl (Ondansetron 4 Mg/2 Ml Sdv) 4 mg IVPUSH Q4H PRN PRN Reason: Nausea/Vomiting Last Admin: 04/09/21 03:32 Dose: 4 mg Documented by: Sodium Chloride (Sodium Chloride 0.9% 10 Ml Syringe) 10 ml FLUSH ASDIRECTED PRN PRN Reason: Keep Vein Open Discontinued Medications Oxytocin/Lactated Ringer's (Pitocin In Lr 10 Units/1,000 Ml) 10 unit in 1,000 mls @ 12 mls/hr IV TITRATE SAWYER; Protocol Magnesium Sulfate 2 gm/ Premix 50 mls @ 300 mls/hr IV ONETIME ONE Stop: 04/09/21 02:45 Last Admin: 04/09/21 03:07 Dose: 300 mls/hr Documented by: Magnesium Sulfate 4 gm/ Premix 50 mls @ 200 mls/hr IV ONETIME ONE Stop: 04/09/21 02:50 Last Admin: 04/09/21 03:20 Dose: 200 mls/hr Documented by: Magnesium Sulfate (Magnesium Sulfate In Water 2 Gm/50 Ml) Confirm Administered Dose 50 mls @ as directed .ROUTE .STK-MED ONE Stop: 04/09/21 02:41 Last Admin: 04/09/21 05:18 Dose: Not Given Documented by: Labetalol HCl (Labetalol 100 Mg/20 Ml Mdv) 20 mg IVPUSH ONETIME ONE; Protocol Stop: 04/09/21 02:36 Last Admin: 04/09/21 02:55 Dose: 20 mg Documented by: Lidocaine HCl (Lidocaine 1% 50 Ml Mdv) 20 ml INJECT ONETIME ONE Stop: 04/09/21 01:35 Misoprostol (Misoprostol 100 Mcg Tab) 25 mcg PO Q4HR PRN PRN Reason: cervical ripening Misoprostol (Misoprostol 25 Mcg (1/4 Of 100 Mcg) Tab) Confirm Administered Dose 25 mcg .ROUTE .STK-MED ONE Stop: 04/09/21 02:22 Last Admin: 04/09/21 03:51 Dose: 25 mcg Documented by: - Uterine Contractions Uterine Monitoring Mode: External [place] Contraction Intensity: Moderate Uterine Resting Tone: Soft - Monitoring Monitor Mode: External Ultrasound Heart Rate (FHR) Baseline: 120 Heart Rate (FHR) Variability: Moderate (6-25 bpm) Accelerations: Present, 15x15 Decelerations: Late, Variable, Intermittent (<50% x 20 min) Strip Review: Category II - Vaginal Exam Dilation (cm): 6-7 Effacement (Percent): 90 Station: -1 Cervical Position: Midposition - Labor Progress (Free Text) Labor Progress: Patient with epidural complete. Did drop BP with this and had some late decelerations. Now improved. Was found to be 6-7 cm at time of AROM. Had some variables after this and again lower BP's. Given 1 dose of ephedrine with improvement. Repeat exam showed more like 6 cm now that no longer BBOW on cervix. Continue to monitor closely
[2021-04-09] MEDS ORDERED: Lactated Ringers 1,000 ML IV SCH ×2 (20:00)
[2021-04-09] MEDS ORDERED: Misoprostol 200 MCG Tab ONE (23:28)
[2021-04-09] MEDS ORDERED: Misoprostol 200 MCG Tab PO ONE (23:30)
[2021-04-09] MEDS ORDERED: Carboprost Tromethamine 250 MCG/1 ML Amp IM ONE (23:44)
--- NOTE | 2021-04-09 23:50 | PCM.DEL ---
L & D Note - General Info Date of Service: 04/09/21 - Delivery Note Labor: Induced by ARM, Induced by Oxytocin Cervical Ripening Method: Balloon Device, Misoprostil Delivery Outcome: Livebirth Delivery Method: Spontaneous Vaginal Delivery-Single Infant Delivery Mode: Spontaneous Presentation: Right Occiput Anterior (CASTILLO) Nuchal Cord: None Anesthesia Type: Epidural Amniotic Fluid Description: Clear Episiotomy Type: None Laceration: 2nd Degree, Perineal Suture type: Vicryl Suture size: 2-0 Placenta: Intact, Spontaneous Cord: 3 Vessels Estimated Blood Loss: 250 Resuscitation Needed: Yes [place]: Bulb Syringe, Stimulated, Warmed, [place] Used, Warmer Used Delivery Comments (Free Text/Narrative):: Patient complete and pushing. With maternal pushing effort head delivered from CASTILLO presentation. No nuchal cord present. With gentle downward traction shoulders and body delivered. Infant placed on maternal abdomen. Cord clamped and cut. Cord blood obtained. Placenta allowed time to separate and expelled intact. Inspection of perineum showed a 2nd degree laceration which was repaired with a 2-0 Vicryl in typical fashion. Initial EBL thought to be 250 cc. However noted then to have slow continuous trickle of bleeding. Manual exam done (although somewhat limited by patient discomfort) and showed large clot in USAMA. This was evacuated and patient given 600 mcg of buccal Cytotec. Still with additional clot/bleeding noted and so given 250 mcg of IM Hemabate. Patient seemed to do well for a period of time, but with next fundal check again small gush of blood noted. Speculum exam done (patient noted to be involuntarily pushing around 8 cm) and no findings of cervical laceration. Cervix/USAMA slightly less boggy, but still with poor tone. Repeat of 250 mcg of Hemabate given. Pad weight of 110 cc. With this last assessment patient with 2 severe range BP's and so given 20 mg of labetalol as well. Ancef to be given for explorations - General Info Date of Service: 04/09/21 - Patient Data Vitals - Most Recent: Last Vital Signs Temp 36.7 C 04/09/21 01:26 Pulse 60 04/09/21 01:26 Resp 16 04/09/21 01:26 BP 167/93 H 04/09/21 01:26 Pulse Ox 100 04/09/21 01:26 Weight - Most Recent: 83.007 kg I&O - Last 24 Hours: Intake & Output 04/09/21 04/09/21 04/10/21 14:59 22:59 06:59 Intake Total 1679 1971 Output Total 1175 625 250 Balance 504 1346 -250 Lab Results Last 24 Hours: Laboratory Results - last 24 hr 04/09/21 04/09/21 04/09/21 Range/Units 01:45 01:45 01:45 WBC 5.70 (3.98-10.04) K/mm3 RBC 4.26 (3.98-5.22) M/mm3 Hgb 12.7 (11.2-15.7) gm/dl Hct 37.6 (34.1-44.9) % MCV 88.3 (79.4-94.8) fl MCH 29.8 (25.6-32.2) pg MCHC 33.8 (32.2-35.5) g/dl RDW Std Deviation 38.8 (36.4-46.3) fL Plt Count 231 (182-369) K/mm3 MPV 10.1 (9.4-12.3) fl Neut % (Auto) 69.6 (34.0-71.1) % Lymph % (Auto) 19.5 (19.3-51.7) % [place] % (Auto) 8.8 (4.7-12.5) % Eos % (Auto) 0.5 L (0.7-5.8) Baso % (Auto) 0.5 (0.1-1.2) % Neut # (Auto) 3.97 (1.56-6.13) K/mm3 Lymph # (Auto) 1.11 L (1.18-3.74) K/mm3 [place] # (Auto) 0.50 H (0.24-0.36) K/mm3 Eos # (Auto) 0.03 L (0.04-0.36) K/mm3 Baso # (Auto) 0.03 (0.01-0.08) K/mm3 BUN 9 (7-18) mg/dL Creatinine 0.8 (0.55-1.02) mg/dL Est Cr Clr Drug Dosing 100.10 mL/min Estimated GFR (MDRD) > 60 (>60) mL/min Uric Acid 6.6 H (2.6-6.0) mg/dL AST 30 (15-37) U/L ALT 24 (14-59) U/L Lactate Dehydrogenase 198 (81-234) U/L Ur Random Creatinine (30.0-125.0) mg/dL U Random Total Protein (0.0-11.8) mg/dL Protein/Creatinin Ratio (0-149) mg/g SARS-CoV-2 RNA (LLOYD) (NEGATIVE) Blood Type O NEGATIVE Gel Antibody Screen Positive 04/09/21 04/09/21 Range/Units 01:55 02:10 WBC (3.98-10.04) K/mm3 RBC (3.98-5.22) M/mm3 Hgb (11.2-15.7) gm/dl Hct (34.1-44.9) % MCV (79.4-94.8) fl MCH (25.6-32.2) pg MCHC (32.2-35.5) g/dl RDW Std Deviation (36.4-46.3) fL Plt Count (182-369) K/mm3 MPV (9.4-12.3) fl Neut % (Auto) (34.0-71.1) % Lymph % (Auto) (19.3-51.7) % [place] % (Auto) (4.7-12.5) % Eos % (Auto) (0.7-5.8) Baso % (Auto) (0.1-1.2) % Neut # (Auto) (1.56-6.13) K/mm3 Lymph # (Auto) (1.18-3.74) K/mm3 [place] # (Auto) (0.24-0.36) K/mm3 Eos # (Auto) (0.04-0.36) K/mm3 Baso # (Auto) (0.01-0.08) K/mm3 BUN (7-18) mg/dL Creatinine (0.55-1.02) mg/dL Est Cr Clr Drug Dosing mL/min Estimated GFR (MDRD) (>60) mL/min Uric Acid (2.6-6.0) mg/dL AST (15-37) U/L ALT (14-59) U/L Lactate Dehydrogenase (81-234) U/L Ur Random Creatinine 142.4 H (30.0-125.0) mg/dL U Random Total Protein 435.2 H (0.0-11.8) mg/dL Protein/Creatinin Ratio 3056.2 H (0-149) mg/g SARS-CoV-2 RNA (LLOYD) Positive H (NEGATIVE) Blood Type Gel Antibody Screen Med Orders - Current: Current Medications Acetaminophen (Acetaminophen 325 Mg Tab) 650 mg PO Q4H PRN PRN Reason: Pain (Mild 1-3) and fever Last Admin: 04/09/21 12:28 Dose: 650 mg Documented by: Calcium Carbonate/Glycine (Calcium Carbonate 500 Mg Tab.Chew) 1,000 mg PO Q2H PRN PRN Reason: Indigestion Calcium Gluconate (Calcium Gluconate 10% 1 Gm/10 Ml Sdv) 1 gm IV ASDIRECTED PRN PRN Reason: respiratory distress Diphenhydramine HCl (Diphenhydramine 50 Mg/Ml Sdv) 25 mg IVPUSH Q6H PRN PRN Reason: pruritis Ephedrine Sulfate (Ephedrine 50 Mg/Ml Sdv) 5 mg IVPUSH ASDIRECTED PRN PRN Reason: Hypotension Last Admin: 04/09/21 18:34 Dose: 5 mg Documented by: Fentanyl (Fentanyl 100 Mcg/2 Ml Sdv) 100 mcg EPIDUR Q3H PRN PRN Reason: Pain Last Admin: 04/09/21 16:02 Dose: 100 mcg Documented by: Fentanyl/Bupivacaine HCl (Bupivacaine/Fentanyl/Ns 100 Ml Bag) 100 ml EPIDUR ASDIRECTED PRN PRN Reason: Pain Last Admin: 04/09/21 22:52 Dose: 100 ml Documented by: Magnesium Sulfate (Magnesium Sulfate In Water 40 Gm/1000 Ml) 40 gm in 1,000 mls @ 50 mls/hr IV ASDIRECTED SAWYER Last Admin: 04/09/21 23:08 Dose: 50 mls/hr Documented by: Oxytocin/Lactated Ringer's (Pitocin In Lr 20 Units/1,000 Ml) 20 unit in 1,000 mls @ 6 mls/hr IV TITRATE SAWYER; Protocol Last Admin: 04/09/21 17:10 Dose: 6 mls/hr Documented by: Lactated Ringer's (Ringers, Lactated) 1,000 mls @ 40 mls/hr IV ASDIRECTED SAWYER Last Admin: 04/09/21 19:55 Dose: 5 mls/hr Documented by: Lactated Ringer's (Ringers, Lactated) 1,000 mls @ 100 mls/hr IV ASDIRECTED [facility] Misoprostol (Misoprostol 25 Mcg (1/4 Of 100 Mcg) Tab) 25 mcg PO Q4HR PRN PRN Reason: cervical ripening Last Admin: 04/09/21 12:28 Dose: 25 mcg Documented by: Nalbuphine HCl (Nalbuphine 10 Mg/1 Ml Vial) 10 mg IVPUSH Q2H PRN PRN Reason: Pain Last Admin: 04/09/21 14:27 Dose: 10 mg Documented by: Ondansetron HCl (Ondansetron 4 Mg/2 Ml Sdv) 4 mg IVPUSH Q4H PRN PRN Reason: Nausea/Vomiting Last Admin: 04/09/21 03:32 Dose: 4 mg Documented by: Sodium Chloride (Sodium Chloride 0.9% 10 Ml Syringe) 10 ml FLUSH ASDIRECTED PRN PRN Reason: Keep Vein Open Discontinued Medications Carboprost Tromethamine (Carboprost Tromethamine 250 Mcg/1 Ml Amp) 250 mcg IM ONETIME ONE Stop: 04/09/21 23:45 Last Admin: 04/09/21 23:44 Dose: 250 mcg Documented by: Lactated Ringer's (Ringers, Lactated) 1,000 mls @ 100 mls/hr IV ASDIRECTED [facility] Last Admin: 04/09/21 19:14 Dose: 25 mls/hr Documented by: Oxytocin/Lactated Ringer's (Pitocin In Lr 10 Units/1,000 Ml) 10 unit in 1,000 mls @ 12 mls/hr IV TITRATE [facility]; Protocol Magnesium Sulfate 2 gm/ Premix 50 mls @ 300 mls/hr IV ONETIME ONE Stop: 04/09/21 02:45 Last Admin: 04/09/21 03:07 Dose: 300 mls/hr Documented by: Magnesium Sulfate 4 gm/ Premix 50 mls @ 200 mls/hr IV ONETIME ONE Stop: 04/09/21 02:50 Last Admin: 04/09/21 03:20 Dose: 200 mls/hr Documented by: Magnesium Sulfate (Magnesium Sulfate In Water 2 Gm/50 Ml) Confirm Administered Dose 50 mls @ as directed .ROUTE .STK-MED ONE Stop: 04/09/21 02:41 Last Admin: 04/09/21 05:18 Dose: Not Given Documented by: Labetalol HCl (Labetalol 100 Mg/20 Ml Mdv) 20 mg IVPUSH ONETIME ONE; Protocol Stop: 04/09/21 02:36 Last Admin: 04/09/21 02:55 Dose: 20 mg Documented by: Lidocaine HCl (Lidocaine 1% 50 Ml Mdv) 20 ml INJECT ONETIME ONE Stop: 04/09/21 01:35 Misoprostol (Misoprostol 100 Mcg Tab) 25 mcg PO Q4HR PRN PRN Reason: cervical ripening Misoprostol (Misoprostol 25 Mcg (1/4 Of 100 Mcg) Tab) Confirm Administered Dose 25 mcg .ROUTE .STK-MED ONE Stop: 04/09/21 02:22 Last Admin: 04/09/21 03:51 Dose: 25 mcg Documented by: Misoprostol (Misoprostol 200 Mcg Tab) 600 mcg PO ONETIME ONE Stop: 04/09/21 23:31 Last Admin: 04/09/21 23:32 Dose: Not Given Documented by: Misoprostol (Misoprostol 200 Mcg Tab) Confirm Administered Dose 600 mcg .ROUTE .STK-MED ONE Stop: 04/09/21 23:29 Last Admin: 04/09/21 23:29 Dose: 600 mcg Documented by: - Exam Urinary Catheter Total Time: 0Days 6Hours - Problem List & Annotations (1) 40 weeks gestation of SNOMED Code(s): 83761428 Code(s): Z3A.40 - 40 WEEKS GESTATION OF Status: Acute Current Visit: Yes (2) Severe preeclampsia SNOMED Code(s): 59650556 Code(s): O14.10 - SEVERE PRE-ECLAMPSIA, UNSPECIFIED TRIMESTER Status: Acute Current Visit: Yes Qualifiers: Trimester: third trimester Qualified Code(s): O14.13 - Severe pre- eclampsia, third trimester (3) Coronavirus infection SNOMED Code(s): 544999707 Code(s): B34.2 - CORONAVIRUS INFECTION, UNSPECIFIED Status: Acute Current Visit: Yes (4) Vaginal delivery SNOMED Code(s): 441178586 Code(s): O80 - ENCOUNTER FOR FULL-TERM UNCOMPLICATED DELIVERY Status: Acute Current Visit: Yes (5) hemorrhage SNOMED Code(s): 78805561 Code(s): O72.1 - OTHER IMMEDIATE HEMORRHAGE Status: Acute Current Visit: Yes Qualifiers: hemorrhage type: unspecified Qualified Code(s): O72.1 - Other immediate hemorrhage - Problem List Review Problem List Initiated/Reviewed/Updated: Yes - My Orders Last 24 Hours: My Active Orders 04/09/21 01:17 Resuscitation Status Routine 04/09/21 01:34 Urinary Catheter Assessment [RC] ASDIRECTED Acetaminophen [TylenoL] 650 mg PO Q4H PRN Calcium Carbonate [Tums] 1,000 mg PO Q2H PRN Nalbuphine [Nubain] 10 mg IVPUSH Q2H PRN Ondansetron [Zofran] 4 mg IVPUSH Q4H PRN Sodium Chloride 0.9% [Saline Flush] 10 ml FLUSH ASDIRECTED PRN PIH Panel [OM.PC] Stat 04/09/21 01:35 Patient Status [ADT] Routine Communication Order [RC] ASDIRECTED Communication Order [RC] ASDIRECTED Communication Order [RC] ASDIRECTED Notify Provider [RC] ASDIRECTED Notify Provider [RC] PRN Peripheral IV Care [RC] Q4HR Pump Management, Intrathecal [RC] ASDIRECTED Electronic Heart Tones Ext w TOCO [WOMSER] Routine Electronic Heart Tones Internal [WOMSER] Per Unit Routine Peripheral IV Insertion Adult [OM.PC] Routine 04/09/21 01:45 ANTIBODY IDENTIFICATION [BBK] Stat RAPID PLASMA REAGIN,RPR [CHEM] Routine TYPE AND SCREEN [BBK] Stat 04/09/21 02:32 Calcium Gluconate 1 gm IV ASDIRECTED PRN 04/09/21 02:33 Bedrest [RC] ASDIRECTED Communication Order [RC] ASDIRECTED Equipment to Bedside [RC] PRN Monitoring [RC] CONTINUOUS Notify Provider [RC] ASDIRECTED Oxygen Therapy [RC] PRN Medication Administration Instruction [OM.PC] Per Unit Routine 04/09/21 02:45 Magnesium Sulfate/Water [Magnesium Sulfate in Water 40 GM/1000 ML] 40 gm in 1,000 ml IV ASDIRECTED Blood Pressure [OM.PC] ASDIRECTED Deep Tendon Reflexes [WOMSER] ASDIRECTED 04/09/21 05:58 miSOPROStoL [Cytotec] 25 mcg PO Q4HR PRN 04/09/21 Breakfast Regular Diet [DIET] 04/09/21 08:01 Intake and Output Strict [RC] Q4HR 04/09/21 08:03 RT Incentive Spirometry [RC] Q2HWA 04/09/21 Lunch Clear Liquid Diet [DIET] 04/09/21 17:15 Oxytocin/Lactated Ringers [Pitocin in LR 20 Units/1,000 ML] 20 unit in 1,000 ml IV TITRATE 04/09/21 20:00 Lactated Ringers [Ringers, Lactated] 1,000 ml IV ASDIRECTED Lactated Ringers [Ringers, Lactated] 1,000 ml IV ASDIRECTED - Assessment Assessment:: PPD#0 - Plan Plan:: * Continue magnesium for 24 hours * BPs q2 hours * Strict I & O's * Monitor bleeding closely, CBC tomorrow around 18 hours post delivery * Breast feeding * Discharge pending clinical course
[2021-04-10] MEDS ORDERED: Labetalol 100 MG/20 ML MDV IVPUSH ONE ×2 (00:27→00:41)
[2021-04-10] MEDS ORDERED: Carboprost Tromethamine 250 MCG/1 ML Amp IM ONE (00:27)
[2021-04-10] MEDS: Oxytocin/Lactated Ringers 20 UNIT/1,000 ML BAG IV SCH (00:32)
[2021-04-10] MEDS ORDERED: ceFAZolin 1 GM Vial IM ONE (00:42)
[2021-04-10] MEDS ORDERED: ceFAZolin 2 GM in Premix Bag 1 BAG IV ONE (00:56)
[2021-04-10] MEDS ORDERED: Benzocaine/Menthol 20%-0.5% Spray 78 GM Cannister TOP PRN (01:02)
[2021-04-10] MEDS ORDERED: Witch Hazel Medicated Pads 40/Jar TOP PRN (01:02)
[2021-04-10] MEDS ORDERED: Ondansetron 4 MG/2 ML SDV IVPUSH PRN (04:20)
--- NOTE | 2021-04-10 07:13 | PCM.PNPP ---
- General Info Date of Service: 04/10/21 Functional Status: Reports: Pain Controlled - Review of Systems General: Reports: Fatigue Pulmonary: Reports: No Symptoms Cardiovascular: Reports: No Symptoms Gastrointestinal: Reports: No Symptoms Genitourinary: Reports: No Symptoms Musculoskeletal: Reports: No Symptoms - General Info Date of Service: 04/10/21 - Patient Data Vital Signs - Most Recent: Last Vital Signs Temp 37.7 C 04/10/21 06:56 Pulse 101 H 04/10/21 06:56 Resp 16 04/10/21 06:56 BP 125/64 04/10/21 06:56 Pulse Ox 95 04/10/21 06:56 Weight - Most Recent: 83.007 kg I&O - Last 24 Hours: Intake & Output 04/09/21 04/10/21 04/10/21 22:59 06:59 14:59 Intake Total 1971 3686 Output Total 625 2553 Balance 1346 1133 Lab Results - Last 24 Hours: Laboratory Results - last 24 hr 04/10/21 Range/Units 05:45 Blood Type Cancelled Gel Antibody Screen Cancelled Screen 1 ros/5 flds - neg RhIG Candidate? Yes Rhogam Indicated Cancelled Med Orders - Current: Current Medications Acetaminophen (Acetaminophen 325 Mg Tab) 650 mg PO Q4H PRN PRN Reason: mild pain or fever Benzocaine/Menthol (Benzocaine/Menthol 20%-0.5% [place] 78 Gm Cannister) 0 gm TOP ASDIRECTED PRN PRN Reason: Perineal Comfort Measure Last Admin: 04/10/21 01:53 Dose: 1 can Documented by: Docusate Sodium (Docusate Sodium 100 Mg Cap) 100 mg PO BID PRN PRN Reason: Constipation Magnesium Sulfate (Magnesium Sulfate In Water 40 Gm/1000 Ml) 40 gm in 1,000 mls @ 50 mls/hr IV ASDIRECTED [facility]WYER Last Admin: 04/09/21 23:08 Dose: 50 mls/hr Documented by: Lactated Ringer's (Ringers, Lactated) 1,000 mls @ 40 mls/hr IV ASDIRECTED [facility]ER Last Admin: 04/09/21 19:55 Dose: 5 mls/hr Documented by: Ibuprofen (Ibuprofen 600 Mg Tab) 600 mg PO Q6H PRN PRN Reason: Mild pain or fever Ondansetron HCl (Ondansetron 4 Mg/2 Ml Sdv) 4 mg IVPUSH Q4H PRN PRN Reason: Nausea Witch Biju (Witch Biju Medicated Pads 40/Jar) 1 pad TOP ASDIRECTED PRN PRN Reason: Perineal Comfort Measure Last Admin: 04/10/21 01:53 Dose: 1 tub Documented by: Discontinued Medications Acetaminophen (Acetaminophen 325 Mg Tab) 650 mg PO Q4H PRN PRN Reason: Pain (Mild 1-3) and fever Last Admin: 04/09/21 12:28 Dose: 650 mg Documented by: Calcium Carbonate/Glycine (Calcium Carbonate 500 Mg Tab.Chew) 1,000 mg PO Q2H PRN PRN Reason: Indigestion Calcium Gluconate (Calcium Gluconate 10% 1 Gm/10 Ml Sdv) 1 gm IV ASDIRECTED PRN PRN Reason: respiratory distress Carboprost Tromethamine (Carboprost Tromethamine 250 Mcg/1 Ml Amp) 250 mcg IM ONETIME ONE Stop: 04/09/21 23:45 Last Admin: 04/09/21 23:44 Dose: 250 mcg Documented by: Carboprost Tromethamine (Carboprost Tromethamine 250 Mcg/1 Ml Amp) 250 mcg IM ONETIME ONE Stop: 04/10/21 00:28 Last Admin: 04/10/21 00:28 Dose: 250 mcg Documented by: Cefazolin Sodium (Cefazolin 1 Gm Vial) 1 gm IM ONETIME ONE Stop: 04/10/21 00:43 Last Admin: 04/10/21 03:44 Dose: Not Given Documented by: Diphenhydramine HCl (Diphenhydramine 50 Mg/Ml Sdv) 25 mg IVPUSH Q6H PRN PRN Reason: pruritis Ephedrine Sulfate (Ephedrine 50 Mg/Ml Sdv) 5 mg IVPUSH ASDIRECTED PRN PRN Reason: Hypotension Last Admin: 04/09/21 18:34 Dose: 5 mg Documented by: Fentanyl (Fentanyl 100 Mcg/2 Ml Sdv) 100 mcg EPIDUR Q3H PRN PRN Reason: Pain Last Admin: 04/09/21 16:02 Dose: 100 mcg Documented by: Fentanyl/Bupivacaine HCl (Bupivacaine/Fentanyl/Ns 100 Ml Bag) 100 ml EPIDUR ASDIRECTED PRN PRN Reason: Pain Last Admin: 04/09/21 22:52 Dose: 100 ml Documented by: Lactated Ringer's (Ringers, Lactated) 1,000 mls @ 100 mls/hr IV ASDIRECTED [facility] Last Admin: 04/09/21 19:14 Dose: 25 mls/hr Documented by: Oxytocin/Lactated Ringer's (Pitocin In Lr 10 Units/1,000 Ml) 10 unit in 1,000 mls @ 12 mls/hr IV TITRATE [facility]ER; Protocol Magnesium Sulfate 2 gm/ Premix 50 mls @ 300 mls/hr IV ONETIME ONE Stop: 04/09/21 02:45 Last Admin: 04/09/21 03:07 Dose: 300 mls/hr Documented by: Magnesium Sulfate 4 gm/ Premix 50 mls @ 200 mls/hr IV ONETIME ONE Stop: 04/09/21 02:50 Last Admin: 04/09/21 03:20 Dose: 200 mls/hr Documented by: Magnesium Sulfate (Magnesium Sulfate In Water 2 Gm/50 Ml) Confirm Administered Dose 50 mls @ as directed .ROUTE .K-MED ONE Stop: 04/09/21 02:41 Last Admin: 04/09/21 05:18 Dose: Not Given Documented by: Oxytocin/Lactated Ringer's (Pitocin In Lr 20 Units/1,000 Ml) 20 unit in 1,000 mls @ 6 mls/hr IV TITRATE [facility]; Protocol Last Admin: 04/10/21 00:32 Dose: 6 mls/hr Documented by: Lactated Ringer's (Ringers, Lactated) 1,000 mls @ 100 mls/hr IV ASDIRECTED [facility] Cefazolin Sodium/Dextrose 2 gm (/ Premix) 50 mls @ 100 mls/hr IV ONETIME ONE Stop: 04/10/21 01:25 Last Admin: 04/10/21 01:16 Dose: 100 mls/hr Documented by: Labetalol HCl (Labetalol 100 Mg/20 Ml Mdv) 20 mg IVPUSH ONETIME ONE; Protocol Stop: 04/09/21 02:36 Last Admin: 04/09/21 02:55 Dose: 20 mg Documented by: Labetalol HCl (Labetalol 100 Mg/20 Ml Mdv) 20 mg IVPUSH ONETIME ONE; Protocol Stop: 04/10/21 00:28 Last Admin: 04/10/21 00:30 Dose: 20 mg Documented by: Labetalol HCl (Labetalol 100 Mg/20 Ml Mdv) 40 mg IVPUSH ONETIME ONE; Protocol Stop: 04/10/21 00:42 Last Admin: 04/10/21 00:42 Dose: 40 mg Documented by: Lidocaine HCl (Lidocaine 1% 50 Ml Mdv) 20 ml INJECT ONETIME ONE Stop: 04/09/21 01:35 Last Admin: 04/10/21 03:43 Dose: Not Given Documented by: Misoprostol (Misoprostol 100 Mcg Tab) 25 mcg PO Q4HR PRN PRN Reason: cervical ripening Misoprostol (Misoprostol 25 Mcg (1/4 Of 100 Mcg) Tab) Confirm Administered Dose 25 mcg .ROUTE .STK-MED ONE Stop: 04/09/21 02:22 Last Admin: 04/09/21 03:51 Dose: 25 mcg Documented by: Misoprostol (Misoprostol 25 Mcg (1/4 Of 100 Mcg) Tab) 25 mcg PO Q4HR PRN PRN Reason: cervical ripening Last Admin: 04/09/21 12:28 Dose: 25 mcg Documented by: Misoprostol (Misoprostol 200 Mcg Tab) 600 mcg PO ONETIME ONE Stop: 04/09/21 23:31 Last Admin: 04/09/21 23:32 Dose: Not Given Documented by: Misoprostol (Misoprostol 200 Mcg Tab) Confirm Administered Dose 600 mcg .ROUTE .STK-MED ONE Stop: 04/09/21 23:29 Last Admin: 04/09/21 23:29 Dose: 600 mcg Documented by: Nalbuphine HCl (Nalbuphine 10 Mg/1 Ml Vial) 10 mg IVPUSH Q2H PRN PRN Reason: Pain Last Admin: 04/09/21 14:27 Dose: 10 mg Documented by: Ondansetron HCl (Ondansetron 4 Mg/2 Ml Sdv) 4 mg IVPUSH Q4H PRN PRN Reason: Nausea/Vomiting Last Admin: 04/09/21 03:32 Dose: 4 mg Documented by: Sodium Chloride (Sodium Chloride 0.9% 10 Ml Syringe) 10 ml FLUSH ASDIRECTED PRN PRN Reason: Keep Vein Open - Infant Interaction Infant Disposition, : [place] in Room with Family Feeding: Attempted ; Nursed Fair/Poor Support Person: Significant Other - Recovery Exam Fundal Tone: Firm Fundal Level: 1 Fingerbreadths Below Umbilicus Fundal Placement: Midline Bladder Status: Indwelling Catheter in Place Urinary Elimination: Indwelling Catheter - Exam General: Alert, Oriented, Cooperative Lungs: Clear to Auscultation, Normal Respiratory Effort Cardiovascular: Regular Rate, Regular Rhythm GI/Abdominal Exam: Soft, Non-Tender Extremities: Normal Inspection Neurological: Reflexes Equal Bilateral - Problem List & Annotations (1) 40 weeks gestation of SNOMED Code(s): 84342630 Code(s): Z3A.40 - 40 WEEKS GESTATION OF Status: Acute Current Visit: Yes (2) Severe preeclampsia SNOMED Code(s): 42136548 Code(s): O14.10 - SEVERE PRE-ECLAMPSIA, UNSPECIFIED TRIMESTER Status: Acute Current Visit: Yes Qualifiers: Trimester: third trimester Qualified Code(s): O14.13 - Severe pre- eclampsia, third trimester (3) Coronavirus infection SNOMED Code(s): 828117018 Code(s): B34.2 - CORONAVIRUS INFECTION, UNSPECIFIED Status: Acute Current Visit: Yes (4) Vaginal delivery SNOMED Code(s): 007055797 Code(s): O80 - ENCOUNTER FOR FULL-TERM UNCOMPLICATED DELIVERY Status: Acute Current Visit: Yes (5) hemorrhage SNOMED Code(s): 80519161 Code(s): O72.1 - OTHER IMMEDIATE HEMORRHAGE Status: Acute Current Visit: Yes Qualifiers: hemorrhage type: unspecified Qualified Code(s): O72.1 - Other immediate hemorrhage (6) fever SNOMED Code(s): 637368731, 785371884 Code(s): O86.4 - PYREXIA OF UNKNOWN ORIGIN FOLLOWING DELIVERY Status: Acute Current Visit: Yes - Problem List Review Problem List Initiated/Reviewed/Updated: Yes - My Orders Last 24 Hours: My Active Orders 04/09/21 08:03 RT Incentive Spirometry [RC] Q2HWA 04/09/21 20:00 Lactated Ringers [Ringers, Lactated] 1,000 ml IV ASDIRECTED 04/10/21 01:02 Acetaminophen [TylenoL] 650 mg PO Q4H PRN Benzocaine/Menthol [Dermoplast Pain Relief 20%-0.5% [place]] See Dose Instructions TOP ASDIRECTED PRN Docusate Sodium [Colace] 100 mg PO BID PRN Ibuprofen [Motrin] 600 mg PO Q6H PRN witch Biju [Tucks] 1 pad TOP ASDIRECTED PRN Heat Therapy [OM.PC] PRN 04/10/21 01:02 Intake and Output Strict [RC] Q2HR Vital Signs [RC] Q2HR Assess Lochia [WOMSER] Per Unit Routine Assess Uterine Involution [WOMSER] Per Unit Routine Breast Pump [WOMSER] Per Unit Routine Perineal Care [OM.PC] Per Unit Routine 04/10/21 04:20 Ondansetron [Zofran] 4 mg IVPUSH Q4H PRN 04/10/21 04:21 Urinary Catheter Assessment [RC] 03,,,04/10/21 04:30 Insert Urinary Catheter [OM.PC] Q24H 04/10/21 05:45 SCREEN [BBK] Stat RH IMMUNE GLOBULIN [BBK] Stat 04/10/21 Breakfast Regular Diet [DIET] 04/10/21 16:00 CBC W/O DIFF,HEMOGRAM [HEME] Routine 04/11/21 01:02 Heat Therapy [OM.PC] PRN - Assessment Assessment:: PPD#1 - Plan Plan:: * Continue magnesium for 24 hours , will stop at 2330 or so tonight * BPs q2 hours. Have been normal to mild range. * Strict I & O's * Monitor bleeding closely, CBC tomorrow around 18 hours post delivery * Patient febrile briefly after delivery early this AM. Presumed to be effect from Cytotec. Did receive Ancef for manual exploration. Will monitor * Breast feeding * Discharge pending clinical course
[2021-04-10] MEDS: Acetaminophen 325 MG Tab PO PRN ×2 (08:24→20:24)
--- NOTE | 2021-04-10 08:40 | PCM.SN.2 ---
- Free Text/Narrative Note: 0830 Patient initially with fever for about 6 hours post delivery thought to potentially be related to Cytotec. Was then afebrile, however, just now with another elevated temperature. Will begin treatment with Ampicillin and Gentamicin for presumed endometritis. Veda Hunter MD
[2021-04-10] MEDS: Clindamycin Phosphate in D5W 900 MG in Premix Bag 1 BAG IV SCH ×4 (10:07→19:31)
--- NOTE | 2021-04-10 11:27 | PCM48HPAN ---
Post Anesthesia Note - EVALUATION WITHIN 48HRS OF ANESTHETIC Vital Signs in Normal Range: Yes Patient Participated in Evaluation: Yes Respiratory Function Stable: Yes Airway Patent: Yes Cardiovascular Function Stable: Yes Hydration Status Stable: Yes Pain Control Satisfactory: Yes Nausea and Vomiting Control Satisfactory: Yes Mental Status Recovered: Yes Vital Signs: Last Vital Signs Temp 37.2 C 04/10/21 10:19 Pulse 91 04/10/21 10:19 Resp 14 04/10/21 10:19 BP 119/55 L 04/10/21 10:19 Pulse Ox 95 04/10/21 10:19 - COMMENTS/OBSERVATIONS Free Text/Narrative:: no anesthesia complications noted
[2021-04-10] MEDS: Magnesium Sulfate/Water 40 GM/1,000 ML BAG IV SCH (21:07)
[2021-04-10] MEDS: Docusate Sodium 100 MG Cap PO PRN (22:16)
[2021-04-11] MEDS: Ibuprofen 600 MG Tab PO PRN ×2 (04:23→20:41)
[2021-04-11] MEDS: Clindamycin Phosphate in D5W 900 MG in Premix Bag 1 BAG IV SCH ×4 (04:24→12:23)
--- NOTE | 2021-04-11 06:51 | PCM.PNPP ---
- General Info Date of Service: 04/11/21 Functional Status: Reports: Pain Controlled, Tolerating Diet, Ambulating, Urinating - Review of Systems General: Reports: No Symptoms (Feeling improved now that magnesium off. ) Pulmonary: Reports: No Symptoms Cardiovascular: Reports: No Symptoms Gastrointestinal: Reports: No Symptoms Genitourinary: Reports: No Symptoms Musculoskeletal: Reports: No Symptoms - General Info Date of Service: 04/11/21 - Patient Data Vital Signs - Most Recent: Last Vital Signs Temp 37.3 C 04/11/21 03:36 Pulse 70 04/11/21 03:36 Resp 14 04/11/21 03:36 BP 113/80 04/11/21 03:36 Pulse Ox 97 04/11/21 03:36 Weight - Most Recent: 83.007 kg I&O - Last 24 Hours: Intake & Output 04/10/21 04/10/21 04/11/21 14:59 22:59 06:59 Intake Total 1297 1691 1028 Output Total 2200 2700 775 Balance -903 -1009 253 Lab Results - Last 24 Hours: Laboratory Results - last 24 hr 04/10/21 04/10/21 04/10/21 Range/Units 05:45 08:57 08:57 WBC 14.26 H (3.98-10.04) K/mm3 RBC 3.50 L (3.98-5.22) M/mm3 Hgb 10.3 L D (11.2-15.7) gm/dl Hct 30.8 L (34.1-44.9) % MCV 88.0 (79.4-94.8) fl MCH 29.4 (25.6-32.2) pg MCHC 33.4 (32.2-35.5) g/dl RDW Std Deviation 37.7 (36.4-46.3) fL Plt Count 239 (182-369) K/mm3 MPV 9.6 (9.4-12.3) fl Creatinine 1.0 (0.55-1.02) mg/dL Est Cr Clr Drug Dosing 80.08 mL/min Estimated GFR (MDRD) > 60 (>60) mL/min Magnesium 7.0 H (1.8-2.4) mg/dL AST 40 H (15-37) U/L ALT 21 (14-59) U/L Blood Type Cancelled Gel Antibody Screen Cancelled Screen 1 ros/5 flds - neg RhIG Candidate? Yes Rhogam Indicated Cancelled Med Orders - Current: Current Medications Acetaminophen (Acetaminophen 325 Mg Tab) 650 mg PO Q4H PRN PRN Reason: mild pain or fever Last Admin: 04/10/21 20:24 Dose: 650 mg Documented by: Benzocaine/Menthol (Benzocaine/Menthol 20%-0.5% [place] 78 Gm Cannister) 0 gm TOP ASDIRECTED PRN PRN Reason: Perineal Comfort Measure Last Admin: 04/10/21 01:53 Dose: 1 can Documented by: Docusate Sodium (Docusate Sodium 100 Mg Cap) 100 mg PO BID PRN PRN Reason: Constipation Last Admin: 04/10/21 22:16 Dose: 100 mg Documented by: Clindamycin Phosphate 900 mg/ (Premix) 50 mls @ 100 mls/hr IV Q8H [facility] Last Admin: 04/11/21 04:24 Dose: 100 mls/hr Documented by: Ibuprofen (Ibuprofen 600 Mg Tab) 600 mg PO Q6H PRN PRN Reason: Mild pain or fever Last Admin: 04/11/21 04:23 Dose: 600 mg Documented by: Ondansetron HCl (Ondansetron 4 Mg/2 Ml Sdv) 4 mg IVPUSH Q4H PRN PRN Reason: Nausea Witch Astrid (Witch Astrid Medicated Pads 40/Jar) 1 pad TOP ASDIRECTED PRN PRN Reason: Perineal Comfort Measure Last Admin: 04/10/21 01:53 Dose: 1 tub Documented by: Discontinued Medications Acetaminophen (Acetaminophen 325 Mg Tab) 650 mg PO Q4H PRN PRN Reason: Pain (Mild 1-3) and fever Last Admin: 04/09/21 12:28 Dose: 650 mg Documented by: Calcium Carbonate/Glycine (Calcium Carbonate 500 Mg Tab.Chew) 1,000 mg PO Q2H PRN PRN Reason: Indigestion Calcium Gluconate (Calcium Gluconate 10% 1 Gm/10 Ml Sdv) 1 gm IV ASDIRECTED PRN PRN Reason: respiratory distress Carboprost Tromethamine (Carboprost Tromethamine 250 Mcg/1 Ml Amp) 250 mcg IM ONETIME ONE Stop: 04/09/21 23:45 Last Admin: 04/09/21 23:44 Dose: 250 mcg Documented by: Carboprost Tromethamine (Carboprost Tromethamine 250 Mcg/1 Ml Amp) 250 mcg IM ONETIME ONE Stop: 04/10/21 00:28 Last Admin: 04/10/21 00:28 Dose: 250 mcg Documented by: Cefazolin Sodium (Cefazolin 1 Gm Vial) 1 gm IM ONETIME ONE Stop: 04/10/21 00:43 Last Admin: 04/10/21 03:44 Dose: Not Given Documented by: Diphenhydramine HCl (Diphenhydramine 50 Mg/Ml Sdv) 25 mg IVPUSH Q6H PRN PRN Reason: pruritis Ephedrine Sulfate (Ephedrine 50 Mg/Ml Sdv) 5 mg IVPUSH ASDIRECTED PRN PRN Reason: Hypotension Last Admin: 04/09/21 18:34 Dose: 5 mg Documented by: Fentanyl (Fentanyl 100 Mcg/2 Ml Sdv) 100 mcg EPIDUR Q3H PRN PRN Reason: Pain Last Admin: 04/09/21 16:02 Dose: 100 mcg Documented by: Fentanyl/Bupivacaine HCl (Bupivacaine/Fentanyl/Ns 100 Ml Bag) 100 ml EPIDUR ASDIRECTED PRN PRN Reason: Pain Last Admin: 04/09/21 22:52 Dose: 100 ml Documented by: Lactated Ringer's (Ringers, Lactated) 1,000 mls @ 100 mls/hr IV ASDIRECTED [facility] Last Admin: 04/09/21 19:14 Dose: 25 mls/hr Documented by: Oxytocin/Lactated Ringer's (Pitocin In Lr 10 Units/1,000 Ml) 10 unit in 1,000 mls @ 12 mls/hr IV TITRATE SAWYER; Protocol Magnesium Sulfate (Magnesium Sulfate In Water 40 Gm/1000 Ml) 40 gm in 1,000 mls @ 50 mls/hr IV ASDIRECTED SAWYER Stop: 04/10/21 23:30 Last Admin: 04/10/21 21:07 Dose: 50 mls/hr Documented by: Magnesium Sulfate 2 gm/ Premix 50 mls @ 300 mls/hr IV ONETIME ONE Stop: 04/09/21 02:45 Last Admin: 04/09/21 03:07 Dose: 300 mls/hr Documented by: Magnesium Sulfate 4 gm/ Premix 50 mls @ 200 mls/hr IV ONETIME ONE Stop: 04/09/21 02:50 Last Admin: 04/09/21 03:20 Dose: 200 mls/hr Documented by: Magnesium Sulfate (Magnesium Sulfate In Water 2 Gm/50 Ml) Confirm Administered Dose 50 mls @ as directed .ROUTE .STK-MED ONE Stop: 04/09/21 02:41 Last Admin: 04/09/21 05:18 Dose: Not Given Documented by: Oxytocin/Lactated Ringer's (Pitocin In Lr 20 Units/1,000 Ml) 20 unit in 1,000 mls @ 6 mls/hr IV TITRATE [facility]; Protocol Last Admin: 04/10/21 00:32 Dose: 6 mls/hr Documented by: Lactated Ringer's (Ringers, Lactated) 1,000 mls @ 40 mls/hr IV ASDIRECTED [facility] Stop: 04/10/21 23:30 Last Admin: 04/09/21 19:55 Dose: 5 mls/hr Documented by: Lactated Ringer's (Ringers, Lactated) 1,000 mls @ 100 mls/hr IV ASDIRECTED [facility] Cefazolin Sodium/Dextrose 2 gm (/ Premix) 50 mls @ 100 mls/hr IV ONETIME ONE Stop: 04/10/21 01:25 Last Admin: 04/10/21 01:16 Dose: 100 mls/hr Documented by: Clindamycin Phosphate 900 mg/ (Premix) 50 mls @ 100 mls/hr IV Q8H [facility] Last Admin: 04/10/21 19:31 Dose: 100 mls/hr Documented by: Gentamicin Sulfate 415 mg/ (Sodium Chloride) 110.375 mls @ 110.375 mls/hr IV ONETIME ONE Stop: 04/10/21 09:59 Last Admin: 04/10/21 09:11 Dose: 110.375 mls/hr Documented by: Labetalol HCl (Labetalol 100 Mg/20 Ml Mdv) 20 mg IVPUSH ONETIME ONE; Protocol Stop: 04/09/21 02:36 Last Admin: 04/09/21 02:55 Dose: 20 mg Documented by: Labetalol HCl (Labetalol 100 Mg/20 Ml Mdv) 20 mg IVPUSH ONETIME ONE; Protocol Stop: 04/10/21 00:28 Last Admin: 04/10/21 00:30 Dose: 20 mg Documented by: Labetalol HCl (Labetalol 100 Mg/20 Ml Mdv) 40 mg IVPUSH ONETIME ONE; Protocol Stop: 04/10/21 00:42 Last Admin: 04/10/21 00:42 Dose: 40 mg Documented by: Lidocaine HCl (Lidocaine 1% 50 Ml Mdv) 20 ml INJECT ONETIME ONE Stop: 04/09/21 01:35 Last Admin: 04/10/21 03:43 Dose: Not Given Documented by: Misoprostol (Misoprostol 100 Mcg Tab) 25 mcg PO Q4HR PRN PRN Reason: cervical ripening Misoprostol (Misoprostol 25 Mcg (1/4 Of 100 Mcg) Tab) Confirm Administered Dose 25 mcg .ROUTE .STK-MED ONE Stop: 04/09/21 02:22 Last Admin: 04/09/21 03:51 Dose: 25 mcg Documented by: Misoprostol (Misoprostol 25 Mcg (1/4 Of 100 Mcg) Tab) 25 mcg PO Q4HR PRN PRN Reason: cervical ripening Last Admin: 04/09/21 12:28 Dose: 25 mcg Documented by: Misoprostol (Misoprostol 200 Mcg Tab) 600 mcg PO ONETIME ONE Stop: 04/09/21 23:31 Last Admin: 04/09/21 23:32 Dose: Not Given Documented by: Misoprostol (Misoprostol 200 Mcg Tab) Confirm Administered Dose 600 mcg .ROUTE .STK-MED ONE Stop: 04/09/21 23:29 Last Admin: 04/09/21 23:29 Dose: 600 mcg Documented by: Nalbuphine HCl (Nalbuphine 10 Mg/1 Ml Vial) 10 mg IVPUSH Q2H PRN PRN Reason: Pain Last Admin: 04/09/21 14:27 Dose: 10 mg Documented by: Ondansetron HCl (Ondansetron 4 Mg/2 Ml Sdv) 4 mg IVPUSH Q4H PRN PRN Reason: Nausea/Vomiting Last Admin: 04/09/21 03:32 Dose: 4 mg Documented by: Sodium Chloride (Sodium Chloride 0.9% 10 Ml Syringe) 10 ml FLUSH ASDIRECTED PRN PRN Reason: Keep Vein Open - Infant Interaction Disposition, : [place] in Room with Family Infant Feeding: Attempted ; Nursed Fair/Poor Support Person: Significant Other - Recovery Exam Fundal Tone: Firm Fundal Level: 1 Fingerbreadths Below Umbilicus Fundal Placement: Midline Lochia Amount: Scant Lochia Color: Rubra/Red Perineum Description: Other (see below) Other Perinuem Description: 2nd degree lac with repair Bladder Status: Indwelling Catheter in Place Urinary Elimination: Indwelling Catheter - Exam General: Alert, Oriented, Cooperative Lungs: Clear to Auscultation, Normal Respiratory Effort Cardiovascular: Regular Rate, Regular Rhythm GI/Abdominal Exam: Soft, Non-Tender Extremities: Normal Inspection Skin: Warm, Dry, Intact Neurological: Reflexes Equal Bilateral - Problem List & Annotations (1) 40 weeks gestation of SNOMED Code(s): 58410617 Code(s): Z3A.40 - 40 WEEKS GESTATION OF Status: Acute Current Visit: Yes (2) Severe preeclampsia SNOMED Code(s): 40929982 Code(s): O14.10 - SEVERE PRE-ECLAMPSIA, UNSPECIFIED TRIMESTER Status: Acute Current Visit: Yes Qualifiers: Trimester: third trimester Qualified Code(s): O14.13 - Severe pre- eclampsia, third trimester (3) Coronavirus infection SNOMED Code(s): 742090000 Code(s): B34.2 - CORONAVIRUS INFECTION, UNSPECIFIED Status: Acute Current Visit: Yes (4) Vaginal delivery SNOMED Code(s): 463863944 Code(s): O80 - ENCOUNTER FOR FULL-TERM UNCOMPLICATED DELIVERY Status: Acute Current Visit: Yes (5) hemorrhage SNOMED Code(s): 22927586 Code(s): O72.1 - OTHER IMMEDIATE HEMORRHAGE Status: Acute Current Visit: Yes Qualifiers: hemorrhage type: unspecified Qualified Code(s): O72.1 - Other immediate hemorrhage (6) fever SNOMED Code(s): 868935441, 335640280 Code(s): O86.4 - PYREXIA OF UNKNOWN ORIGIN FOLLOWING DELIVERY Status: Acute Current Visit: Yes - Problem List Review Problem List Initiated/Reviewed/Updated: Yes - My Orders Last 24 Hours: My Active Orders 04/10/21 Breakfast Regular Diet [DIET] 04/11/21 01:02 Heat Therapy [OM.PC] PRN 04/11/21 04:00 Clindamycin Phosphate in D5W [Cleocin in D5W 900 MG/50 ML] 900 mg Premix Bag 1 bag IV Q8H - Assessment Assessment:: PPD#2 - Plan Plan:: * Magnesium stopped last night at 2300. BP's on magnesium were normal. Now more mild range. Continue to monitor * Treated for endometritis. Last fever around 0830 yesterday AM. S/p Gentamicin. One further dose of Clindamycin. * Breast feeding * Discharge tomorrow
--- NOTE | 2021-04-11 12:49 | PCM.SN.2 ---
- Free Text/Narrative Note: 2027 Received call from RN. BP with 137/116 with cuff, but repeat manual mild range. Patient feels well. Will start oral nifedipine of 30 mg daily now. Veda Hunter MD
[2021-04-11] MEDS: NIFEdipine 30 MG Tab.ER PO SCH (13:07)
--- NOTE | 2021-04-12 06:31 | PCM.DCSUM1 ---
Discharge Summary - Discharge Data Discharge Date: 04/12/21 Discharge Disposition: Home, Self-Care 01 Condition: Good - Referral to Home Health Primary Care Physician: Sergio Lazar MD - Discharge Diagnosis/Problem(s) (1) 40 weeks gestation of SNOMED Code(s): 67801115 ICD Code: Z3A.40 - 40 WEEKS GESTATION OF Status: Acute (2) Severe preeclampsia SNOMED Code(s): 64487081 ICD Code: O14.10 - SEVERE PRE-ECLAMPSIA, UNSPECIFIED TRIMESTER Status: Acute Qualifiers: Trimester: third trimester Qualified Code(s): O14.13 - Severe pre- eclampsia, third trimester (3) Coronavirus infection SNOMED Code(s): 156842541 ICD Code: B34.2 - CORONAVIRUS INFECTION, UNSPECIFIED Status: Acute (4) Vaginal delivery SNOMED Code(s): 276839975 ICD Code: O80 - ENCOUNTER FOR FULL-TERM UNCOMPLICATED DELIVERY Status: Acute (5) hemorrhage SNOMED Code(s): 57681319 ICD Code: O72.1 - OTHER IMMEDIATE HEMORRHAGE Status: Acute Qualifiers: hemorrhage type: unspecified Qualified Code(s): O72.1 - Other immediate hemorrhage (6) fever SNOMED Code(s): 273772417, 913073458 ICD Code: O86.4 - PYREXIA OF UNKNOWN ORIGIN FOLLOWING DELIVERY Status: Acute - Patient Summary/Data Complications: None Consults: None Recommended Follow-up Testing/Procedures: Follow up in 1 week for BP check and 3 weeks for check Hospital Course: 20 y/o at 40 0/7 wks who presented thinking she was in labor. Was not in labor, but found to have severe range BP's requiring admission and induction. Given IV labetalol to bring down BP's and then started on magnesium. Induction done with cytotec x3 doses and eventually a cook balloon and pitocin. Progressed well to complete dilation and underwent . Delivery notable for PPH managed with Cytotec and Hemabate. did develop a fever which was initially thought to be medication related, but after lasted 8 hours was started on Clindamycin and Gent for endometritis for 24 hours. Was also kept on magnesium for 24 hours post delivery. After magnesium discontinued did develop a few higher BP's on PPD#2 and so started on oral nifedipine. Did well with this and was eventually discharged home on PPD#3 - Patient Instructions Diet: Regular Diet as Tolerated Activity: As Tolerated Activity, Other: Pelvic rest for 6 weeks Driving: May Drive Today Showering/Bathing: May Shower Showering/Bathing, Other: May Bathe Notify Provider of: Fever, Increased Pain, Swelling and Redness, Drainage, Nausea and/or Vomiting - Discharge Plan *PRESCRIPTION DRUG MONITORING PROGRAM REVIEWED*: No *COPY OF PRESCRIPTION DRUG MONITORING REPORT IN PATIENT KAREN: No Prescriptions/Med Rec: NIFEdipine [Procardia XL] 30 mg PO DAILY #30 tab.er Home Medications: Home Meds Pnv No.95/Ferrous Fum/Folic AC [ Caplet] 1 tab PO DAILY 10/14/20 [History] Acetaminophen [Tylenol] 650 mg PO Q4H PRN tablet 04/11/21 [Rx] Docusate Sodium [Colace] 100 mg PO BID PRN cap 04/11/21 [Rx] Ibuprofen [Motrin] 600 mg PO Q6H PRN tablet 04/11/21 [Rx] NIFEdipine [Procardia XL] 30 mg PO DAILY #30 tab.er 04/11/21 [Rx] Patient Handouts: Hypertension, Care After Vaginal Delivery Referrals: Sergio Lazar MD [Primary Care Provider] - (1 week BP check 3 weeks for check ) - Discharge Summary/Plan Comment DC Time >30 min.: No Total # of Minutes for Discharge Time: 20 - Patient Data Vitals - Most Recent: Last Vital Signs Temp 36.9 C 04/11/21 23:57 Pulse 73 04/11/21 23:57 Resp 14 04/12/21 00:00 BP 132/84 04/11/21 23:57 Pulse Ox 98 04/11/21 23:57 Weight - Most Recent: 83.007 kg I&O - Last 24 hours: Intake & Output 04/11/21 04/11/21 04/12/21 14:59 22:59 06:59 Intake Total 150 400 Output Total 1450 1300 Balance -1300 -900 Lab Results - Last 24 hrs: Laboratory Results - last 24 hr 04/09/21 04/09/21 Range/Units 01:45 01:45 RPR Non-reactive (NONREACTIVE) Antibody Identification See Comments Med Orders - Current: Current Medications Acetaminophen (Acetaminophen 325 Mg Tab) 650 mg PO Q4H PRN PRN Reason: mild pain or fever Last Admin: 04/10/21 20:24 Dose: 650 mg Documented by: Benzocaine/Menthol (Benzocaine/Menthol 20%-0.5% [place] 78 Gm Cannister) 0 gm TOP ASDIRECTED PRN PRN Reason: Perineal Comfort Measure Last Admin: 04/10/21 01:53 Dose: 1 can Documented by: Docusate Sodium (Docusate Sodium 100 Mg Cap) 100 mg PO BID PRN PRN Reason: Constipation Last Admin: 04/10/21 22:16 Dose: 100 mg Documented by: Ibuprofen (Ibuprofen 600 Mg Tab) 600 mg PO Q6H PRN PRN Reason: Mild pain or fever Last Admin: 04/11/21 20:41 Dose: 600 mg Documented by: Nifedipine (Nifedipine 30 Mg Tab.Er) 30 mg PO DAILY SAWYER Last Admin: 04/11/21 13:07 Dose: 30 mg Documented by: Ondansetron HCl (Ondansetron 4 Mg/2 Ml Sdv) 4 mg IVPUSH Q4H PRN PRN Reason: Nausea Witch Astrid (Witch Astrid Medicated Pads 40/Jar) 1 pad TOP ASDIRECTED PRN PRN Reason: Perineal Comfort Measure Last Admin: 04/10/21 01:53 Dose: 1 tub Documented by: Discontinued Medications Acetaminophen (Acetaminophen 325 Mg Tab) 650 mg PO Q4H PRN PRN Reason: Pain (Mild 1-3) and fever Last Admin: 04/09/21 12:28 Dose: 650 mg Documented by: Bupivacaine HCl (Bupivacaine 0.25% 10 Ml Sdv) 10 ml .ROUTE .STK-MED ONE Stop: 04/09/21 17:01 Calcium Carbonate/Glycine (Calcium Carbonate 500 Mg Tab.Chew) 1,000 mg PO Q2H PRN PRN Reason: Indigestion Calcium Gluconate (Calcium Gluconate 10% 1 Gm/10 Ml Sdv) 1 gm IV ASDIRECTED PRN PRN Reason: respiratory distress Carboprost Tromethamine (Carboprost Tromethamine 250 Mcg/1 Ml Amp) 250 mcg IM ONETIME ONE Stop: 04/09/21 23:45 Last Admin: 04/09/21 23:44 Dose: 250 mcg Documented by: Carboprost Tromethamine (Carboprost Tromethamine 250 Mcg/1 Ml Amp) 250 mcg IM ONETIME ONE Stop: 04/10/21 00:28 Last Admin: 04/10/21 00:28 Dose: 250 mcg Documented by: Cefazolin Sodium (Cefazolin 1 Gm Vial) 1 gm IM ONETIME ONE Stop: 04/10/21 00:43 Last Admin: 04/10/21 03:44 Dose: Not Given Documented by: Diphenhydramine HCl (Diphenhydramine 50 Mg/Ml Sdv) 25 mg IVPUSH Q6H PRN PRN Reason: pruritis Ephedrine Sulfate (Ephedrine 50 Mg/Ml Sdv) 5 mg IVPUSH ASDIRECTED PRN PRN Reason: Hypotension Last Admin: 04/09/21 18:34 Dose: 5 mg Documented by: Fentanyl (Fentanyl 100 Mcg/2 Ml Sdv) 100 mcg EPIDUR Q3H PRN PRN Reason: Pain Last Admin: 04/09/21 16:02 Dose: 100 mcg Documented by: Fentanyl/Bupivacaine HCl (Bupivacaine/Fentanyl/Ns 100 Ml Bag) 100 ml EPIDUR ASDIRECTED PRN PRN Reason: Pain Last Admin: 04/09/21 22:52 Dose: 100 ml Documented by: Lactated Ringer's (Ringers, Lactated) 1,000 mls @ 100 mls/hr IV ASDIRECTED [facility] Last Admin: 04/09/21 19:14 Dose: 25 mls/hr Documented by: Oxytocin/Lactated Ringer's (Pitocin In Lr 10 Units/1,000 Ml) 10 unit in 1,000 mls @ 12 mls/hr IV TITRATE [facility]; Protocol Magnesium Sulfate (Magnesium Sulfate In Water 40 Gm/1000 Ml) 40 gm in 1,000 mls @ 50 mls/hr IV ASDIRECTED SAWYER Stop: 04/10/21 23:30 Last Admin: 04/10/21 21:07 Dose: 50 mls/hr Documented by: Magnesium Sulfate 2 gm/ Premix 50 mls @ 300 mls/hr IV ONETIME ONE Stop: 04/09/21 02:45 Last Admin: 04/09/21 03:07 Dose: 300 mls/hr Documented by: Magnesium Sulfate 4 gm/ Premix 50 mls @ 200 mls/hr IV ONETIME ONE Stop: 04/09/21 02:50 Last Admin: 04/09/21 03:20 Dose: 200 mls/hr Documented by: Magnesium Sulfate (Magnesium Sulfate In Water 2 Gm/50 Ml) Confirm Administered Dose 50 mls @ as directed .ROUTE .STK-MED ONE Stop: 04/09/21 02:41 Last Admin: 04/09/21 05:18 Dose: Not Given Documented by: Oxytocin/Lactated Ringer's (Pitocin In Lr 20 Units/1,000 Ml) 20 unit in 1,000 mls @ 6 mls/hr IV TITRATE SAWYER; Protocol Last Admin: 04/10/21 00:32 Dose: 6 mls/hr Documented by: Lactated Ringer's (Ringers, Lactated) 1,000 mls @ 40 mls/hr IV ASDIRECTED SAWYER Stop: 04/10/21 23:30 Last Admin: 04/09/21 19:55 Dose: 5 mls/hr Documented by: Lactated Ringer's (Ringers, Lactated) 1,000 mls @ 100 mls/hr IV ASDIRECTED SAWYER Cefazolin Sodium/Dextrose 2 gm (/ Premix) 50 mls @ 100 mls/hr IV ONETIME ONE Stop: 04/10/21 01:25 Last Admin: 04/10/21 01:16 Dose: 100 mls/hr Documented by: Clindamycin Phosphate 900 mg/ (Premix) 50 mls @ 100 mls/hr IV Q8H [facility] Last Admin: 04/10/21 19:31 Dose: 100 mls/hr Documented by: Gentamicin Sulfate 415 mg/ (Sodium Chloride) 110.375 mls @ 110.375 mls/hr IV ONETIME ONE Stop: 04/10/21 09:59 Last Admin: 04/10/21 09:11 Dose: 110.375 mls/hr Documented by: Clindamycin Phosphate 900 mg/ (Premix) 50 mls @ 100 mls/hr IV Q8H SAWYER Stop: 04/11/21 13:00 Last Admin: 04/11/21 12:23 Dose: 100 mls/hr Documented by: Labetalol HCl (Labetalol 100 Mg/20 Ml Mdv) 20 mg IVPUSH ONETIME ONE; Protocol Stop: 04/09/21 02:36 Last Admin: 04/09/21 02:55 Dose: 20 mg Documented by: Labetalol HCl (Labetalol 100 Mg/20 Ml Mdv) 20 mg IVPUSH ONETIME ONE; Protocol Stop: 04/10/21 00:28 Last Admin: 04/10/21 00:30 Dose: 20 mg Documented by: Labetalol HCl (Labetalol 100 Mg/20 Ml Mdv) 40 mg IVPUSH ONETIME ONE; Protocol Stop: 04/10/21 00:42 Last Admin: 04/10/21 00:42 Dose: 40 mg Documented by: Lidocaine HCl (Lidocaine 1% 50 Ml Mdv) 20 ml INJECT ONETIME ONE Stop: 04/09/21 01:35 Last Admin: 04/10/21 03:43 Dose: Not Given Documented by: Misoprostol (Misoprostol 100 Mcg Tab) 25 mcg PO Q4HR PRN PRN Reason: cervical ripening Misoprostol (Misoprostol 25 Mcg (1/4 Of 100 Mcg) Tab) Confirm Administered Dose 25 mcg .ROUTE .STK-MED ONE Stop: 04/09/21 02:22 Last Admin: 04/09/21 03:51 Dose: 25 mcg Documented by: Misoprostol (Misoprostol 25 Mcg (1/4 Of 100 Mcg) Tab) 25 mcg PO Q4HR PRN PRN Reason: cervical ripening Last Admin: 04/09/21 12:28 Dose: 25 mcg Documented by: Misoprostol (Misoprostol 200 Mcg Tab) 600 mcg PO ONETIME ONE Stop: 04/09/21 23:31 Last Admin: 04/09/21 23:32 Dose: Not Given Documented by: Misoprostol (Misoprostol 200 Mcg Tab) Confirm Administered Dose 600 mcg .ROUTE .STK-MED ONE Stop: 04/09/21 23:29 Last Admin: 04/09/21 23:29 Dose: 600 mcg Documented by: Nalbuphine HCl (Nalbuphine 10 Mg/1 Ml Vial) 10 mg IVPUSH Q2H PRN PRN Reason: Pain Last Admin: 04/09/21 14:27 Dose: 10 mg Documented by: Ondansetron HCl (Ondansetron 4 Mg/2 Ml Sdv) 4 mg IVPUSH Q4H PRN PRN Reason: Nausea/Vomiting Last Admin: 04/09/21 03:32 Dose: 4 mg Documented by: Sodium Chloride (Sodium Chloride 0.9% 10 Ml Syringe) 10 ml FLUSH ASDIRECTED PRN PRN Reason: Keep Vein Open
[2021-04-12] MEDS: NIFEdipine 30 MG Tab.ER PO SCH (09:55)
[2021-04-12] MEDS: Docusate Sodium 100 MG Cap PO PRN (09:55)
== END 2021-04-12 11:50 | disposition home or self-care (01) | DRG 805 ==
LOC: JD.OBCHECK 01:11 → JD.OB 01:12 → JD.OBCHECK 01:35 → OBSVTOIN 23:22 → JD.OB 23:23
PROVIDERS: ADMIT Obstetrics & Gynecology; ATTEND Obstetrics & Gynecology
PROC: 10E0XZZ Delivery of Products of Conception, External Approach (ICD-10-PCS; principal; 2021-04-09)
PROC: 0KQM0ZZ Repair Perineum Muscle, Open Approach (ICD-10-PCS; 2021-04-09)
PROC: 10907ZC Drainage of Amniotic Fluid, Therapeutic from Products of Conception, Via Natural or Artificial Opening (ICD-10-PCS; 2021-04-09)
PROC: 3E0P7VZ Introduction of Hormone into Female Reproductive, Via Natural or Artificial Opening (ICD-10-PCS; 2021-04-09)
PROC: 3E033VJ Introduction of Other Hormone into Peripheral Vein, Percutaneous Approach (ICD-10-PCS; 2021-04-09)
PROC: 3E0R3BZ Introduction of Anesthetic Agent into Spinal Canal, Percutaneous Approach (ICD-10-PCS; 2021-04-09)
PROC: 00HU33Z Insertion of Infusion Device into Spinal Canal, Percutaneous Approach (ICD-10-PCS; 2021-04-09)
PROC: 3E0334Z Introduction of Serum, Toxoid and Vaccine into Peripheral Vein, Percutaneous Approach (ICD-10-PCS; 2021-04-10)
DX: O14.14 Severe pre-eclampsia complicating childbirth (principal); U07.1 COVID-19; Z37.0 Single live birth; O98.52 Other viral diseases complicating childbirth; O72.1 Other immediate postpartum hemorrhage; O70.1 Second degree perineal laceration during delivery; O86.12 Endometritis following delivery; O76 Abnormality in fetal heart rate and rhythm complicating labor and delivery; O26.893 Other specified pregnancy related conditions, third trimester; Z3A.40 40 weeks gestation of pregnancy; Z67.41 Type O blood, Rh negative
CPT/HCPCS: 01967; 36415; 36430; 51701; 51702; 59025; 59200; 59409; 82565; 82570; 83615; 83735; 84156; 84450; 84460; 84520; 84550; 85025; 85027; 85461; 86592; 86850; 86870; 86900; 86901; A9270-GY; C1726; J0690; J1580; J2300; J2405; J2590; J2790; J3010; J3475; J3490; J7120; U0002

== ENCOUNTER 2023-10-30 06:52 | Inpatient (IN) | payer BC, MEDICAID ==
[~2023-10-30 06:52] MED LIST: Bupivacaine 0.25% 10 ML SDV ONE
[2023-10-30] MEDS ORDERED: Nalbuphine 10 MG/ML Syringe IVPUSH PRN (06:55)
[2023-10-30] MEDS ORDERED: Sodium Chloride 0.9% 10 ML Syringe FLUSH PRN (06:55)
[2023-10-30] MEDS ORDERED: Lidocaine 1% 50 ML MDV INJECT PRN (06:55)
[2023-10-30] MEDS ORDERED: Oxytocin/Lactated Ringers 30 UNIT/500 ML BAG IV SCH (07:00)
[2023-10-30 07:23] LABS: BASOPHILS ABSOLUTE AUTO 0.1 K/mm3 (0.0-0.2); BASOPHILS PERCENT AUTO 0.5 % (0.0-1.0); EOSINOPHILS ABSOLUTE AUTO 0.2 K/mm3 (0.0-0.4); EOSINOPHILS PERCENT AUTO 1.9 % (0.0-6.0); HEMATOCRIT 37.8 % (37.0-47.0); IMMATURE GRAN ABSOLUTE AUTO 0.11 K/mm3 (0.00-0.05); IMMATURE GRAN PERCENT AUTO 1.1 % (0.0-0.4); LYMPHOCYTES ABSOLUTE AUTO 2.1 K/mm3 (1.0-4.8); LYMPHOCYTES PERCENT AUTO 20.6 % (24.0-44.0); MEAN CORPUSCULAR HEMOGLOBIN 30.5 pg (28.0-32.0); MEAN CORPUSCULAR HGB CONC 34.4 g/dl (32.0-36.0); MEAN CORPUSCULAR VOLUME 88.7 fl (83.0-99.0); MEAN PLATELET VOLUME 9.8 fl (9.4-12.3); MONOCYTES ABSOLUTE AUTO 0.8 K/mm3 (0.0-0.8); MONOCYTES PERCENT AUTO 7.4 % (0.0-8.0); NEUTROPHILS PERCENT AUTO 68.5 % (41.0-71.0); PLATELET COUNT,PLT 234 K/mm3 (150-400); RED BLOOD CELL COUNT 4.26 M/mm3 (4.10-5.30)
[2023-10-30] MEDS: Oxytocin/Lactated Ringers 30 UNIT/500 ML BAG IV SCH (08:00)
[2023-10-30] MEDS: Lactated Ringers 1,000 ML IV SCH (08:00)
[2023-10-30] MEDS ORDERED: diphenhydrAMINE 50 MG/ML SDV IVPUSH PRN (08:55)
[2023-10-30] MEDS: Sodium Chloride 0.9% 10 ML Syringe FLUSH SCH (09:22)
[2023-10-30] MEDS: Bupivacaine/fentaNYL/NS 100 ML Bag EPIDUR PRN (12:47)
[2023-10-30] MEDS: fentaNYL 100 MCG/2 ML SDV EPIDUR PRN (12:47)
[2023-10-30] MEDS: Ondansetron 4 MG/2 ML SDV IVPUSH PRN (16:02)
[2023-10-30] MEDS: ePHEDrine 50 MG/ML SDV IVPUSH PRN (16:24)
[2023-10-30] MEDS ORDERED: Witch Hazel Medicated Pads 40/Jar TOP PRN (20:48)
[2023-10-30] MEDS ORDERED: Benzocaine/Menthol 20%-0.5% Spray 78 GM Cannister TOP PRN (20:48)
[2023-10-31] MEDS: Ibuprofen 600 MG Tab PO SCH (02:51)
[2023-10-31] MEDS: Acetaminophen 325 MG Tab PO PRN (06:56)
[2023-10-31] MEDS: Docusate Sodium 100 MG Cap PO PRN (12:43)
== END 2023-10-31 22:00 | disposition home or self-care (01) | DRG 560 ==
LOC: JD.OB 06:52 → INTOOBSV 06:52 → JD.OB 19:53 → OBSVTOIN 19:53 → JD.OB 19:54
PROVIDERS: ADMIT Obstetrics & Gynecology; ATTEND Obstetrics & Gynecology
PROC: 10E0XZZ Delivery of Products of Conception, External Approach (ICD-10-PCS; principal; 2023-10-30)
PROC: 3E0R3BZ Introduction of Anesthetic Agent into Spinal Canal, Percutaneous Approach (ICD-10-PCS; 2023-10-30)
PROC: 00HU33Z Insertion of Infusion Device into Spinal Canal, Percutaneous Approach (ICD-10-PCS; 2023-10-30)
PROC: 10907ZC Drainage of Amniotic Fluid, Therapeutic from Products of Conception, Via Natural or Artificial Opening (ICD-10-PCS; 2023-10-30)
PROC: 3E033VJ Introduction of Other Hormone into Peripheral Vein, Percutaneous Approach (ICD-10-PCS; 2023-10-30)
DX: O80 Encounter for full-term uncomplicated delivery (principal); Z86.16 Personal history of COVID-19; Z3A.39 39 weeks gestation of pregnancy; Z37.0 Single live birth; Z79.82 Long term (current) use of aspirin
CPT/HCPCS: 36415; 36430; 51702; 59025; 59409; 85025; 85461; 86592; 86850; 86870; 86900; 86901; A9270-GY; J0665; J2405; J2790; J3010; J3490; J7120; J7999

== ENCOUNTER 2024-11-20 18:08 | Emergency (ER) | payer BC, MEDICAID | END 2024-11-20 19:10 | disposition home or self-care (01) | LOC: EEVIPCON 18:08 → JD.ED 18:08 | DX: T74.21XA Adult sexual abuse, confirmed, initial encounter (principal); Z86.16 Personal history of COVID-19; Z79.899 Other long term (current) drug therapy; Y07.9 Unspecified perpetrator of maltreatment and neglect | CPT/HCPCS: 99284 ==